=== PATIENT | male | born 1955 | race Caucasian/White ===

== ENCOUNTER 2019-03-26 12:15 | Emergency (ER) | payer MEDICAID, MEDICARE, OTHER, SELFPAY ==
[~2019-03-26] VITALS: Ht 172.7 cm; Wt 72.7 kg
[2019-03-26 12:52] LABS: BASO % 0.2 % (0.0-1.0); EOS % 0.2 % (0.0-3.0); HEMATOCRIT 42.2 % (42.0-52.0); HEMOGLOBIN 14.5 g/dl (13.5-17.5); LYMPH # 1.6 10^3/uL (1.5-4.5); LYMPH % 17.9 % (24.0-44.0); MEAN CORPUSCULAR HGB CONC 34.4 g/dl (32.0-36.5); MEAN CORPUSCULAR VOLUME 87.2 fl (80.0-96.0); MONO # 0.9 10^3/uL (0.0-0.8); MONO % 10.1 % (0.0-5.0); NEUTROPHILS # 6.2 10^3/uL (1.8-7.7); NEUTROPHILS % 71.1 % (36.0-66.0); PLATELET COUNT, AUTOMATED 367 10^3/uL (150-450); RED BLOOD COUNT 4.84 10^6/uL (4.30-6.10); WHITE BLOOD COUNT 8.7 10^3/uL (4.0-10.0)
[2019-03-26] MEDS ORDERED: NS 1,000 ML IV ONE (13:00)
[2019-03-26] MEDS ORDERED: ONDANSETRON 4MG/2ML VIAL (J2405) IV ONE ×3 (13:00→16:45)
[2019-03-26] MEDS ORDERED: MORPHINE 4 MG/ML 1ML VIAL/SYRINGE (J2270) IV ONE ×3 (13:00→14:00)
[2019-03-26] MEDS ORDERED: POLYSPORIN TOPICAL OINTMENT 15GM As Ordered ONE (13:04)
[2019-03-26 13:22] LABS: ALBUMIN 4.3 GM/DL (3.2-5.2); ALT/SGPT 22 U/L (12-78); AMYLASE 32 U/L (25-115); BILIRUBIN,DIRECT 0.2 MG/DL (0.0-0.2); BILIRUBIN,TOTAL 0.8 MG/DL (0.2-1.0); LIPASE 90 U/L (73-393); TOTAL PROTEIN 7.8 GM/DL (6.4-8.2)
--- NOTE | 2019-03-26 14:20 | REP ---
Clinical: Chest and abdominal pain . Comparison: None . Findings: The mediastinum and cardiac silhouette are stable and within normal limits for portable technique. The lung ramirez are clear without acute consolidation, effusion, or pneumothorax. Skeletal structures are intact. Impression: No acute cardiopulmonary process appreciated. Electronically Signed by Srikanth Rodriguez MD 03/26/2019 02:11 P
[2019-03-26] MEDS ORDERED: ISOVUE-370 76% 100ML VIAL (Q9967) As Ordered ONE (14:52)
[2019-03-26] MEDS ORDERED: LIDOCAINE 2% 5ML JELLY UROJET TOP ONE (15:15)
--- NOTE | 2019-03-26 15:39 | REP ---
Clinical: Left upper quadrant pain. Technique: Axial contrast enhanced images from the lung bases to the pubic symphysis with coronal and sagittal re-formations using 100 ml Isovue 370 intravenous contrast material. Findings: Lung bases are clear. Visualized heart and pericardium normal. Liver, spleen, pancreas, gallbladder, bilateral adrenal glands and kidneys are essentially normal. Subcentimeter left renal hypodensity likely represent small cortical cyst. Prominence to the pancreatic duct is nonspecific and no obvious obstructing lesion is appreciated. The enteric system is without obstruction or acute inflammatory process. Scattered colonic and sigmoid diverticula noted without acute diverticulitis. Pelvis demonstrates collapsed bladder and age appropriate prostate/seminal vesicles. Small fat containing left inguinal hernia noted. No ascites. No free air. No adenopathy. Atherosclerotic changes to the aorta and vasculature without aneurysm or dissection. Musculoskeletal structures demonstrate degenerative changes without focal osseous abnormality. Impression: 1. No obvious acute abdominopelvic pathology appreciated. 2. Chronic and nonacute findings as described above. Electronically Signed by Srikanth Rodriguez MD 03/26/2019 03:31 P
[2019-03-26 15:58] LABS: CPK CREATINE PHOSPHOKINASE 395 U/L (39-308); MB/CK RELATIVE INDEX 1.06 (< OR =4); TROPONIN I < 0.02 NG/ML (< 0.10)
[2019-03-26 16:22] VITALS: BP 182/90
[2019-03-26] MEDS ORDERED: BACI50OI TOP (16:22)
[2019-03-26] MEDS ORDERED: NORC1TAB7 PO (16:22)
[2019-03-26] MEDS ORDERED: ZOFR4TAB16 PO (16:42)
--- NOTE | 2019-03-26 19:47 | ECGEPIP ---
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
== END 2019-03-26 16:54 | disposition home or self-care (01) ==
LOC: M ED 12:15
DX: T21.24XA Burn of second degree of lower back, initial encounter (principal); T31.0 Burns involving less than 10% of body surface; X16.XXXA Contact with hot heating appliances, radiators and pipes, initial encounter; Y92.099 Unspecified place in other non-institutional residence as the place of occurrence of the external cause; Y93.84 Activity, sleeping; Y99.9 Unspecified external cause status; I45.4 Nonspecific intraventricular block; R10.9 Unspecified abdominal pain; I10 Essential (primary) hypertension; K51.919 Ulcerative colitis, unspecified with unspecified complications

== ENCOUNTER 2019-03-27 10:53 | Inpatient (IN) | payer MEDICARE, SELFPAY ==
[~2019-03-27] VITALS: Ht 172.7 cm; Wt 72.4 kg
[~2019-03-27 10:53] MED LIST: BACI50OI TOP; NORC1TAB7 PO; ZOFR4TAB16 PO
[2019-03-27] MEDS ORDERED: MORPHINE 4 MG/ML 1ML VIAL/SYRINGE (J2270) IV ONE ×2 (11:15→12:30)
[2019-03-27] MEDS ORDERED: ONDANSETRON 4MG/2ML VIAL (J2405) IV ONE ×2 (11:15→15:15)
[2019-03-27] MEDS ORDERED: NS 1,000 ML IV ONE (11:15)
[2019-03-27 11:47] LABS: BASO % 0.2 % (0.0-1.0); EOS % 0.1 % (0.0-3.0); HEMATOCRIT 39.4 % (42.0-52.0); HEMOGLOBIN 13.4 g/dl (13.5-17.5); LYMPH # 0.9 10^3/uL (1.5-4.5); LYMPH % 9.8 % (24.0-44.0); MEAN CORPUSCULAR HEMOGLOBIN 29.8 pg (27.0-33.0); MEAN CORPUSCULAR VOLUME 87.6 fl (80.0-96.0); MONO # 0.5 10^3/uL (0.0-0.8); MONO % 5.1 % (0.0-5.0); NEUTROPHILS % 84.4 % (36.0-66.0); PLATELET COUNT, AUTOMATED 346 10^3/uL (150-450); WHITE BLOOD COUNT 9.5 10^3/uL (4.0-10.0)
[2019-03-27] MEDS ORDERED: METOCLOPRAMIDE INJ 10MG/2ML VIAL (J2765) IV ONE (12:00)
[2019-03-27 12:16] LABS: ALBUMIN 3.9 GM/DL (3.2-5.2); ALT/SGPT 20 U/L (12-78); BILIRUBIN,DIRECT 0.2 MG/DL (0.0-0.2); BILIRUBIN,TOTAL 0.6 MG/DL (0.2-1.0); BLOOD UREA NITROGEN 18 MG/DL (7-18); CALCIUM LEVEL 9.3 MG/DL (8.8-10.2); CARBON DIOXIDE LEVEL 26 MEQ/L (21-32); CHLORIDE LEVEL 100 MEQ/L (98-107); GLOMERULAR FILTRATION RATE > 60.0 (>49); GLUCOSE, FASTING 100 MG/DL (70-100); LIPASE 210 U/L (73-393); POTASSIUM SERUM 3.8 MEQ/L (3.5-5.1); SODIUM LEVEL 135 MEQ/L (136-145); TOTAL PROTEIN 7.1 GM/DL (6.4-8.2)
[2019-03-27] MEDS ORDERED: NACL IV ONE (13:00)
[2019-03-27] MEDS ORDERED: KETAMINE IV ONE (13:00)
[2019-03-27] MEDS ORDERED: DILUENT IV ONE (13:00)
--- NOTE | 2019-03-27 13:12 | REP ---
Clinical: Left-sided abdominal pain. Technique: Upright view of the chest with supine and upright views of the abdomen and pelvis. Findings: Frontal upright view of the chest demonstrates no acute cardiopulmonary process or free air below the diaphragm to suspect pneumoperitoneum. Supine and upright views of the abdomen and pelvis demonstrate nonspecific bowel gas pattern without obstruction or perforation. No organomegaly. No abnormal calcifications. Skeletal structures normal for age. Impression: Nonspecific bowel gas pattern. Electronically Signed by Srikanth Rodriguez MD 03/27/2019 01:04 P
[2019-03-27] MEDS: GASTROGRAFIN SOLUTION 30ML PO SCH ×2 (14:48→14:50)
[2019-03-27] MEDS: METOPROLOL 5 MG/5 ML VIAL IV SCH ×5 (15:04→15:20)
[2019-03-27] MEDS ORDERED: NS 1,000 ML IV SCH ×2 (15:15→22:15)
[2019-03-27 15:22] LABS: INR 1.01; PROTHROMBIN TIME 13.4 SECONDS (12.1-14.4)
[2019-03-27 15:38] LABS: CPK CREATINE PHOSPHOKINASE 333 U/L (39-308); FREE THYROXINE INDEX 3.7 % (1.4-3.8); MB/CK RELATIVE INDEX 1.35 (< OR =4); T UPTAKE 38 % (33-40); THYROID STIMULATING HORMONE 0.451 uIU/ML (0.358-3.740); THYROXINE (T4) 9.8 UG/DL (4.5-12.0); TROPONIN I < 0.02 NG/ML (< 0.10)
[2019-03-27] MEDS ORDERED: diltiaZEM 125 MG in NS 100 ML IV SCH (15:45)
[2019-03-27 16:01] LABS: MAGNESIUM LEVEL 2.4 MG/DL (1.8-2.4)
[2019-03-27] MEDS ORDERED: NEOSPORIN TOP OINT 15GM TOP ONE (16:15)
--- NOTE | 2019-03-27 16:23 | REP ---
Clinical: Left lower quadrant pain with history of Crohn disease. Technique: Axial images from the lung bases to the pubic symphysis using oral contrast material with coronal and sagittal re-formations. Comparison: 03/26/2019. Findings: Liver, spleen, pancreas, bilateral adrenal glands and kidneys are normal. Vicarious excretion of contrast into the gallbladder may be related to underlying renal dysfunction. Evaluation of the enteric system demonstrates no obstruction. Mild inflammatory changes involving multiple loops of small bowel in the left mid abdomen cannot be excluded. Pelvis demonstrates normal bladder and age appropriate prostate/seminal vesicles. No ascites. No free air. No obvious adenopathy. Abdominal aorta without aneurysm. Small fat containing left inguinal hernia. Musculoskeletal structures demonstrate degenerative changes. Lung bases are clear. Impression: 1. Element of enteritis cannot definitively be excluded. No bowel obstruction. No free air to suggest perforation. No ascites, drainable collection or abscess appreciated. 2. Vicarious excretion of contrast into the gallbladder is noted and may be related to renal dysfunction. 3. No further acute abdominopelvic pathology appreciated. Electronically Signed by Srikanth Rodriguez MD 03/27/2019 04:15 P
[2019-03-27] MEDS ORDERED: AMIODARONE HCL 150 MG in APPROPRIATE DILUENT 1 EA IV STA (17:04)
[2019-03-27] MEDS ORDERED: LIDOCAINE 5% (LIDODERM) PATCH TD ONE (17:15)
[2019-03-27] MEDS ORDERED: ENOXAPARIN 40 MG/0.4 ML SYRINGE (J1650) SC SCH (17:15)
--- NOTE | 2019-03-27 17:41 | HPEPDOC ---
[facility] Medical History & Physical Date of Admission March 27, 2019 Date of Service: March 27, 2019 History and Physical PCP: [facility] [place] patient cannot recall name has not seen him in quite some time CHIEF COMPLAINT: Left-sided abdominal pain HISTORY OF PRESENT ILLNESS: Patient describes a long history of left lower quadrant abdominal pain that has been intermittent in nature for many years. He tells me over the last 2 days has become excruciating and unlike any time he has experienced previously, it is been associated with nausea but no vomiting and he has had very little to eat over the last 2 days because of the. He tells me he has a history of Crohn's disease and has had numerous colonoscopies related to his pain while. He cannot remember when the last one was done where it was done because that is had them done in [facility] as well as [place]. Patient tells me that he was in the emergency room yesterday he was told everything was fine and he went home however the pain was still excruciatin g prompting him to present once again today. He denies any relation to food or particular positions but rather with pinpoint pushing on the specific area. He tells me he also burned his back not last night but the night before while falling asleep laying in front ofheater. He has done this in the past as well but is particularly bad this time. While being evaluated in the emergency room today he began to feel a fluttering in his chest and was found to be in atrial fibrillation with rapid ventricular response which she has never experienced before or been in before to his knowledge. At this time the patient continues to complain of pain in his left lower quadrant as well as palpitations in his chest. He denies any significant pain related to his back. Otherwise patient denies weight loss, hair loss, headache, visual changes, cough, diarrhea, muscle aches, worsening arthritis, change in mood PAST MEDICAL HISTORY: 1. Crohn's disease not on any medication numerous colonoscopies in the past. 2. Anxiety depression schizophrenia not on any medications in the recent past. 3. Hiatal hernia 4. Asthma not any medications. HOME MEDICATIONS: None. ALLERGIES: Seasonal allergies no medical allergies PAST SURGICAL HISTORY: 1. Right knee surgery. 2. Hiatal hernia operation. 3. Numerous colonoscopies. SOCIAL HISTORY: Lives with: Alone normally in his camper but during the winter months and currently residing with his friend Db, Employment: Not working, Tobacco use: Denies. ETOH: Heavy user but quit 18 years ago, Illicit drug use: Daily marijuana use, Tattoos done unprofessionally: Numerous tattoos but certainly done, CODE STATUS: Full code FAMILY HISTORY:Reviewed and noncontributory REVIEW OF SYSTEMS: 10 systems reviewed and negative other than HPI PHYSICAL EXAMINATION: VITAL SIGNS: Temperature 98.5, pulse 135, respiratory rate 18, blood pressure 176/117, pulse oximetry 99 % on room air. GENERAL: Pleasant disheveled unkempt lady elderly man appears older than stated age sitting up in bed awake alert oriented speaking in complete sentences no acute distress HEENT: Somewhat dry mucous membranes no elevation and CVP CARDIOVASCULAR: S1 S2 irregular and tachycardic no additional heart sounds appreciated. RESPIRATORY: Clear to auscultation bilaterally. Diffuse foley and erythema to the back also in the midline approximately 7% appears to be second-degree foley to percent first-degree ABDOMINAL: Bowel sounds present abdomen soft and pinpoint tenderness to an area that appears to feel like a small 1 x 1 cm hernia versus lymph node in the left lower quadrant EXTREMITIES: No clubbing cyanosis or edema NEUROLOGICAL: Spontaneously moves all 4 extremities cranial 2 through 12 grossly intact no gross focal deficits appreciated PSYCHOLOGICAL: Appropriate LABORATORY DATA: See below. MICROBIOLOGY: Please see below. IMAGING: Abdominal x-ray:Nonspecific bowel gas pattern. CT scan of the abdomen and pelvis:1. Element of enteritis cannot definitively be excluded. No bowel obstruction. No free air to suggest perforation. No ascites, drainable collection or abscess appreciated. 2. Vicarious excretion of contrast into the gallbladder is noted and may be related to renal dysfunction. 3. No further acute abdominopelvic pathology appreciated. ASSESSMENT & PLAN: This is a 63-year-old man with left lower quadrant pain as well as foley and new onset atrial fibrillation with rapid ventricular response. PROBLEMS: 1. New onset atrial fibrillation with rapid ventricular response: The etiology is unclear and may be related to his foley there is no obvious provoking factors. He is started on a Cardizem drip in the emergency room given his symptomatic and is aware of the changes I suspect this is not a chronic ongoing arrhythmia for him. He was in normal sinus rhythm and documented as such in the emergency room upon arrival. I'll provide him with amiodarone 150 mg IV 1 and then continue Cardizem titrate for heart rate less than 120 and systolic blood pressure less than 180. I have contacted Dr. Pike of cardiology who will see the patient in consultation. I have ordered an echocardiogram thyroid panel is unremarkable he denies any illicit drug use other than marijuana. I will also transition troponins 2. First and second degree foley: On his back combined equate to approximately 9% of his body, the second degree foley appear fairly significant in the midline area. He denies any specific complaints with I have ordered him for silver Savanah vadene. Could consider inpatient wound consult. He appears to be adequately hydrated and his foley are already greater than 24 hours old at this time 3. Left lower quadrant abdominal pain: He appears to have either on lymph node versus small hernia in the left lower quadrant that is tender on palpation. It is not reducible does not appear to be acutely swollen and inflamed. I restarted general surgery Dr. Diallo will see the patient in consultation regarding this, his pain seems to be out of proportion he does have a normal lactate as well as no leukocytosis fever noted any blood in the stool. I'll provide him with a Lidoderm patch as discussed with surgery 4.Psychiatric history: Documented history of anxiety depression schizophrenia the patient denies all of these is not any medications at this time 5. Medical noncompliance: He has been noncompliant in the past has not seen doctors in quite some time he refused admission yesterday, strict adherence to all doctors instructions and follow up appointments was stressed. The patient tells me he does not believe in medications DVT PROPHYLAXIS: Lovenox DISPOSITION: Admitted to the medical intensive care unit his prognosis is guard ed Vital Signs Vital Signs Date Time Temp Pulse Resp B/P (MAP) Pulse Ox O2 Delivery O2 Flow Rate FiO2 03/27/19 17:10 131/85 (100) 03/27/19 17:01 116 18 97 Room Air 03/27/19 10:53 98.6 Laboratory Data Labs 24H Laboratory Tests 2 03/27/19 11:37: Immature Granulocyte % (Auto) 0.4, White Blood Count 9.5, Red Blood Count 4.50, Hemoglobin 13.4L, Hematocrit 39.4L, Mean Corpuscular Volume 87.6, Mean Corpuscular Hemoglobin 29.8, Mean Corpuscular Hemoglobin Concent 34.0, Red Cell Distribution Width 13.4, Platelet Count 346, Neutrophils (%) (Auto) 84.4H, Lymphocytes (%) (Auto) 9.8L, Monocytes (%) (Auto) 5.1H, Eosinophils (%) (Auto) 0.1, Basophils (%) (Auto) 0.2, Neutrophils # (Auto) 8.0H, Lymphocytes # (Auto) 0.9L, Monocytes # (Auto) 0.5, Eosinophils # (Auto) 0.0, Basophils # (Auto) 0.0, Nucleated Red Blood Cells % (auto) 0.0, Prothrombin Time 13.4, Prothromb Time International Ratio 1.01, Activated Partial Thromboplast Time 25.0L, Anion Gap 9, Glomerular Filtration Rate > 60.0, Lactic Acid Level 1.5, Calcium Level 9.3, Magnesium Level 2.4, Aspartate Amino Transf (AST/SGOT) 25, Alanine Aminotransferase (ALT/SGPT) 20, Alkaline Phosphatase 85, Total Bilirubin 0.6, Direct Bilirubin 0.2, Total Creatine Kinase 333H, Creatine Kinase MB 4.0H, Creatine Kinase MB Relative Index 1.35, Troponin I < 0.02, Total Protein 7.1, Albumin 3.9, Albumin/Globulin Ratio 1.22, Lipase 210, Thyroid Stimulating Hormone (TSH) 0.451, Free Thyroxine Index 3.7, Thyroxine (T4) 9.8, Triiodothy ronine (T3) Uptake 38 CBC/BMP Laboratory Tests 03/27/19 11:37 Red Blood Count 4.50, Mean Corpuscular Volume 87.6, Mean Corpuscular Hemoglobin 29.8, Mean Corpuscular Hemoglobin Concent 34.0, Red Cell Distribution Width 13.4, Neutrophils (%) (Auto) 84.4 H, Lymphocytes (%) (Auto) 9.8 L, Monocytes (%) (Auto) 5.1 H, Eosinophils (%) (Auto) 0.1, Basophils (%) (Auto) 0.2, Neutrophils # (Auto) 8.0 H, Lymphocytes # (Auto) 0.9 L, Monocytes # (Auto) 0.5, Eosinophils # (Auto) 0.0, Basophils # (Auto) 0.0 Home Medications Scheduled Bacitracin (Bacitracin) 28.4 Gm Oint...g., 1 APLCT TOP BID apply to affected area(s) Ondansetron HCl (Zofran) 4 Mg Tablet, 4 MG PO Q6H Allergies Coded Allergies: No Known Allergies (Unverified , 03/26/19) A-FIB/CHADSVASC A-FIB History Current/History of A-Fib/PAF?: Yes Current PO Anticoag Therapy: No Age/Risk Factor Scoring CHADSVASC: CHADSVASC Response (Comments) Value Age Risk Factor Age < 65 years old 0 Gender Risk Factor Male 0 Hx of CHF No 0 Hx of HTN Yes 1 Hx of Stroke/TIA/or VTE No 0 Hx of Diabetes No 0 Hx of Vascular Disease No 0 Total 1 Treatment Treatment ordered: NONE Reason Anticoagulant not given: Not indicated/[id number] ADAM ORR MD March 27, 2019 17:41
[2019-03-27] MEDS ORDERED: PERCOCET 5MG/325MG TAB PO PRN ×2 (17:45)
[2019-03-27] MEDS ORDERED: MORPHINE 4 MG/ML 1ML VIAL/SYRINGE (J2270) IV PRN (17:45)
[2019-03-27] MEDS: diltiaZEM 125 MG in NS 100 ML IV SCH (20:00)
--- NOTE | 2019-03-27 20:05 | CR ---
DATE OF CONSULTATION: 03/27/2019 REASON FOR CONSULTATION: Left lower quadrant point tenderness. HISTORY OF PRESENT ILLNESS: The patient is a 63-year-old male who has had some left lower quadrant pain for many years. However, over the last couple days it has been quite severe. He came into the emergency room yesterday and essentially had a negative workup, was discharged home and returns today because of persistent / increasing pain. When he was being evaluated, he did have some atrial fibrillation in a rapid ventricular response. He is here for additional recommendations. His second issue is that he developed a superficial burn of his back while sleeping in front of a space heater for some chronic back pain. He states that his pain is better when he has bowel movements and when he voids. He notices an area that seems to indent in his left lower quadrant and then it goes away. His past medical history is significant for history of anxiety, history of depression, history of schizophrenia, not on any medications, history of hiatal hernia, history of asthma, history of Crohn's disease (has had numerous colonoscopies with polypectomies), history of knee surgery, history of hiatal hernia surgery. Physical exam reveals a 63-year-old male who looks much older than stated age. HEENT is unremarkable. Neck supple without adenopathy. Lungs are clear to auscultation. Heart is irregularly irregular. His abdomen is soft, nondistended. He has a Lidoderm patch on his left lower quadrant. However, in palpation of this area I am not appreciating any significant hernias specifically in the inguinal area. The area that he has the Lidoderm patch on is actually in the left lower quadrant area and no evidence of hernias are appreciated on CT scan in this area. IMPRESSION AND PLAN: Left lower quadrant pain of undetermined etiology. I am not sure what the etiology is and may easily be musculoskeletal as a possibility. He does not appear obstructed on any of his x-rays. He does not have evidence of urinary tract obstruction on his x-rays and thus intra-abdominal process seems less likely at this time. Once again sounds more like musculoskeletal. Could be radiculopathy. Questionable node / swelling in the groin area. I am not appreciating any significant lymphadenopathy. He has some mild bulging in the / diastasis in the groin area but I am not convinced I have any evidence of hernia but this is not where he is tender. Thus at this point I do feel symptomatic treatment is reasonable alone for this. Second issue, his foley are getting current treatment for these and quick evaluation of reveal that some of these are deep first degree or possibly shallow second-degree foley but quite a significant amount on his back. Would recommend a wound consultation / consultation with Dr. Bustos tomorrow. Otherwise continue with his current dressing changes are reasonable at this time.
[2019-03-27 20:31] VITALS: BP 135/81
[2019-03-27] MEDS ORDERED: **NOTE PATIENT COMMENT** MISC XX SCH (21:00)
[2019-03-27] MEDS: SUCRALFATE 1 GM TAB PO SCH (21:00)
--- NOTE | 2019-03-27 21:04 | ECGEPIP ---
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
--- NOTE | 2019-03-27 21:11 | ECGEPIP ---
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 Order Number: [id number] Reading MD: Nicci Boykin Measurements Intervals [place] Rate: 143 P: IN: -1 QRS: 74 QRSD: 100 T: QT: 260 QTc: 402 Interpretive Statements ATRIAL FIBRILLATION WITH RAPID VENTRICULAR RESPONSE NONSPECIFIC ST & T-WAVE ABNORMALITY 03/27/19 11:14 SINUS RHYTHM Electronically Signed on 03-27-2019 21:11:20 EDT by Nicci Boykin
[2019-03-27] MEDS ORDERED: ONDANSETRON 4MG/2ML VIAL (J2405) IV PRN (21:30)
[2019-03-27 22:00] VITALS: BP 177/96
[2019-03-27] MEDS: PROCHLORPERAZINE 10 MG/2 ML VIAL (J0780) IV PRN (22:14)
[2019-03-27] MEDS: PANTOPRAZOLE 40MG INJ (PROTONIX) (C9113) IV SCH (22:14)
[2019-03-27] MEDS ORDERED: ENOXAPARIN 30 MG/0.3 ML SYR (J1650) SC ONE (22:15)
[2019-03-27 22:29] VITALS: BP 184/112
[2019-03-27] MEDS ORDERED: HYDROMORPHONE HCL 0.5 MG/ 0.5 ML SYRINGE (J1170 PER 1) IV ONE (22:30)
[2019-03-27] MEDS ORDERED: KETOROLAC 30 MG/ML VIAL (J1885) IV ONE (22:30)
[2019-03-27] MEDS: D5W/0.9% SODIUM CHLORIDE 1,000 ML IV SCH (22:45)
[2019-03-27 23:00] VITALS: BP 105/64
[2019-03-27] MEDS ORDERED: AMIODARONE HCL 150 MG in APPROPRIATE DILUENT 1 EA IV ONE (23:00)
[2019-03-27 23:10] VITALS: BP 112/58
[2019-03-27 23:37] VITALS: BP 110/69
[2019-03-28] VITALS (34 sets, daily range): BP systolic 84–235; BP diastolic 47–112
[2019-03-28] MEDS: SILVER SULFADIAZINE 1% CR 50 GM JAR TOP SCH ×5 (00:01→20:24)
[2019-03-28] MEDS: ONDANSETRON 4MG/2ML VIAL (J2405) IV SCH ×3 (04:37→21:15)
[2019-03-28 05:03] LABS: HEMATOCRIT 35.9 % (42.0-52.0); HEMOGLOBIN 12.4 g/dl (13.5-17.5); MEAN CORPUSCULAR HEMOGLOBIN 30.1 pg (27.0-33.0); MEAN CORPUSCULAR HGB CONC 34.5 g/dl (32.0-36.5); MEAN CORPUSCULAR VOLUME 87.1 fl (80.0-96.0); PLATELET COUNT, AUTOMATED 315 10^3/uL (150-450); RED BLOOD COUNT 4.12 10^6/uL (4.30-6.10); WHITE BLOOD COUNT 5.4 10^3/uL (4.0-10.0)
[2019-03-28 05:26] LABS: BLOOD UREA NITROGEN 13 MG/DL (7-18); CALCIUM LEVEL 7.9 MG/DL (8.8-10.2); CARBON DIOXIDE LEVEL 27 MEQ/L (21-32); CHLORIDE LEVEL 102 MEQ/L (98-107); CREATININE FOR GFR 0.93 MG/DL (0.70-1.30); GLOMERULAR FILTRATION RATE > 60.0 (>49); GLUCOSE, FASTING 93 MG/DL (70-100); POTASSIUM SERUM 3.8 MEQ/L (3.5-5.1); SODIUM LEVEL 139 MEQ/L (136-145)
[2019-03-28 05:28] LABS: MB/CK RELATIVE INDEX 1.64 (< OR =4); TROPONIN I 0.02 NG/ML (< 0.10)
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
[2019-03-28] MEDS: ASPIRIN 81 MG ENTERIC TAB PO SCH (09:13)
[2019-03-28] MEDS: PANTOPRAZOLE 40MG INJ (PROTONIX) (C9113) IV SCH ×2 (09:13→21:48)
[2019-03-28] MEDS: SUCRALFATE 1 GM TAB PO SCH ×3 (09:13→20:24)
[2019-03-28] MEDS: PROCHLORPERAZINE 10 MG/2 ML VIAL (J0780) IV PRN (12:09)
[2019-03-28] MEDS: D5W/0.9% SODIUM CHLORIDE 1,000 ML IV SCH (12:13)
[2019-03-28] MEDS: APIXABAN 5 MG TAB (ELIQUIS) PO SCH ×2 (12:45→20:24)
[2019-03-28] MEDS: METOPROLOL TART 25 MG TABLET PO SCH ×2 (12:45→17:18)
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
[2019-03-28] MEDS: VANCOMYCIN HCL 1,000 MG, VIAL MATE ADAPTER 1 EACH in D5W 250 ML IV ONE ×2 (13:08→15:27)
[2019-03-28] MEDS ORDERED: VANCOMYCIN HCL 500 MG in D5W MINI-BAG PLUS 100 ML IV ONE (14:00)
[2019-03-28] MEDS ORDERED: LIDOCAINE 1% MDV 20ML VIAL As Ordered ONE (14:02)
[2019-03-28] MEDS ORDERED: ISOVUE-370 76% 100ML VIAL (Q9967) As Ordered ONE (14:15)
[2019-03-28] MEDS: MORPHINE 4 MG/ML 1ML VIAL/SYRINGE (J2270) IV PRN (15:27)
[2019-03-28] MEDS ORDERED: LORazepam 2 MG/ML VIAL (J2060) IV ONE (15:45)
--- NOTE | 2019-03-28 15:51 | REP ---
Clinical: Abdominal pain. Rule out mesenteric ischemia. Technique: Axial contrast enhanced angiographic images obtained using 100 ml Isovue 370 intravenous contrast material with multiplanar re-formations and MIP reconstructions. Oral contrast administered prior to imaging as per protocol. Findings: The aorta, celiac axis, superior mesenteric artery, solitary bilateral renal arteries, and inferior mesenteric artery are normal in enhancement and without evidence for occlusion or stenosis. Very minimal calcified atheromatous plaquing along the infrarenal abdominal aorta and portions of the bilateral common iliac arteries noted without stenosis. No evidence for aortic aneurysm or dissection. Liver, spleen, pancreas, bilateral adrenal glands and kidneys are normal. Layering sludge within the gallbladder cannot be excluded without evidence for acute cholecystitis. The enteric system is without obstruction or acute inflammatory process. Pelvis demonstrates normal bladder and mildly prominent prostate gland. No ascites. Small fat containing left inguinal hernia noted. No free air. No adenopathy. Musculoskeletal structures demonstrate age-related degenerative changes without focal osseous abnormality. Impression: 1. Minimal calcified atheromatous plaque involving the infrarenal aorta and common iliac arteries. Normal enhancement to the aorta and major branch vessels noted without evidence for stenosis or occlusion. 2. No acute abdominopelvic pathology appreciated. 3. Layering sludge within the gallbladder without acute cholecystitis. 4. Mildly prominent prostate gland. 5. Small fat containing left inguinal hernia. Electronically Signed by Srikanth Rodriguez MD 03/28/2019 03:43 P
[2019-03-28] MEDS ORDERED: MOM 30ML SUSPENSION UDC PO ONE (16:15)
--- NOTE | 2019-03-28 16:21 | REP ---
Procedure: PICC line insertion with Corey-Lauren The procedure was performed under the direct supervision of Dr. Still. The risks and benefits of the procedure were explained to the patient and informed consent was obtained. The right basilic vein was localized using ultrasound guidance. The skin was prepped and draped in a sterile fashion. 2% lidocaine was used as a local anesthetic. Using ultrasound guidance the basilic vein was cannulated and a 0.018 guidewire was inserted and advanced to the SVC using fluoroscopic guidance. The needle was removed and a 5.5 [place] dilator and peel-away sheath was inserted over the guide wire. A 5.5 [place] dual lumen catheter was cut to length of 45 cm. The dilator was removed and the catheter was inserted over the guide wire with the tip ending in the SVC. The peel-away sheath was removed and the catheter was flushed with heparinized saline as per Hospital protocol. The catheter was affixed to the skin and a sterile dressing was applied. The patient tolerated the procedure well and there were no immediate complications. 0.2 minutes of fluoro time was utilized for this procedure. Reviewed by KENNETH Gutierrez 03/28/2019 04:01 P Electronically Signed by Sammy Still MD 03/28/2019 04:12 P
[2019-03-28] MEDS ORDERED: HYDROMORPHONE HCL 0.5 MG/ 0.5 ML SYRINGE (J1170 PER 1) IV ONE (16:30)
[2019-03-28] MEDS: MIRALAX *UNIT DOSE* 17GM PACKET PO SCH (16:39)
[2019-03-28] MEDS: diltiaZEM 125 MG in NS 100 ML IV SCH (17:25)
[2019-03-28] MEDS ORDERED: ENOXAPARIN 80 MG/0.8 ML SYRINGE (J1650) SC SCH (18:00)
[2019-03-28] MEDS ORDERED: SODIUM CHLORIDE 0.9% INJ 10 ML SYR IV PRN (18:15)
[2019-03-28] MEDS: DICYCLOMINE 10 MG CAP PO SCH (20:24)
[2019-03-28] MEDS: SENOKOT S TAB PO SCH (20:24)
--- NOTE | 2019-03-28 21:45 | ECHO ---
DATE OF PROCEDURE: 03/28/2019 REFERRING PHYSICIAN: Dennis Segura MD INDICATION: Abnormal ECG. HEIGHT: 173 cm WEIGHT: 72 kg 2D MEASUREMENTS: Ventricular septum: 1.13 cm Posterior wall: 1.00 cm Left ventricle diastole: 5.2 cm Left atrium: 4.0 cm Left atrial volume index: 24 Aortic annulus: 2.0 cm Inferior vena cava: 1.3 cm with more than 50% respiratory variation. Central venous pressure estimated to be 5 mmHg. DOPPLER MEASUREMENTS: Aortic valve velocity: 125 cm/s LVOT velocity: 112 cm/s LVOT VTI: 19.2 cm Mild mitral regurgitation. Very mild tricuspid regurgitation. No pulmonic regurgitation. No aortic regurgitation. DESCRIPTION: Rhythm was atrial fibrillation. Image quality was fair. This was a 2D, M-mode, color flow Doppler and pulse wave Doppler examination that included mitral annular tissue Doppler. No pericardial effusion. CONCLUSIONS: 1. Normal left ventricle internal dimensions and wall thickness. Normal regional LV wall motion and wall thickening. Normal LV systolic function. LVEF 65-70% by visual estimate. Unable to determine LV diastolic function in the setting of atrial fibrillation. 2. Normal left atrial size. 3. Otherwise normal appearing echocardiogram Doppler findings.
[2019-03-29] VITALS (30 sets, daily range): BP systolic 89–207; BP diastolic 48–106; O2SAT 98
[2019-03-29] MEDS: D5W/0.9% SODIUM CHLORIDE 1,000 ML IV SCH (01:52)
[2019-03-29] MEDS: PROCHLORPERAZINE 10 MG/2 ML VIAL (J0780) IV PRN ×2 (01:57→08:18)
[2019-03-29 05:00] LABS: HEMATOCRIT 32.9 % (42.0-52.0); HEMOGLOBIN 11.1 g/dl (13.5-17.5); MEAN CORPUSCULAR HEMOGLOBIN 29.8 pg (27.0-33.0); MEAN CORPUSCULAR HGB CONC 33.7 g/dl (32.0-36.5); MEAN CORPUSCULAR VOLUME 88.2 fl (80.0-96.0); PLATELET COUNT, AUTOMATED 292 10^3/uL (150-450); RED BLOOD COUNT 3.73 10^6/uL (4.30-6.10); WHITE BLOOD COUNT 4.9 10^3/uL (4.0-10.0)
[2019-03-29 05:18] LABS: BLOOD UREA NITROGEN 6 MG/DL (7-18); CALCIUM LEVEL 7.3 MG/DL (8.8-10.2); CARBON DIOXIDE LEVEL 28 MEQ/L (21-32); CHLORIDE LEVEL 109 MEQ/L (98-107); CREATININE FOR GFR 0.93 MG/DL (0.70-1.30); GLOMERULAR FILTRATION RATE > 60.0 (>49); GLUCOSE, FASTING 355 MG/DL (70-100); POTASSIUM SERUM 3.2 MEQ/L (3.5-5.1); SODIUM LEVEL 141 MEQ/L (136-145)
[2019-03-29] MEDS ORDERED: POTASSIUM CHLORIDE 10 MEQ SR TABLET PO ONE ×2 (05:30→07:45)
[2019-03-29] MEDS: ONDANSETRON 4MG/2ML VIAL (J2405) IV SCH ×3 (05:45→20:19)
[2019-03-29] MEDS: METOPROLOL TART 25 MG TABLET PO SCH ×2 (05:46)
[2019-03-29] MEDS: SODIUM CHLORIDE 0.9% INJ 10 ML SYR IV SCH ×2 (05:46→17:37)
[2019-03-29] MEDS ORDERED: DEXTROSE 50% 50 ML SYRINGE IV PRN (07:30)
[2019-03-29] MEDS ORDERED: GLUCOSE 4 GM CHEW TABLET PO PRN (07:30)
[2019-03-29] MEDS ORDERED: GLUCAGON FOR INJ 1 MG VIAL (J1610) SC PRN (07:30)
[2019-03-29] MEDS ORDERED: FLEET OIL RETENTION ENEMA PR PRN (08:15)
[2019-03-29] MEDS: MORPHINE 4 MG/ML 1ML VIAL/SYRINGE (J2270) IV PRN ×2 (08:18→20:25)
[2019-03-29] MEDS: HumaLOG INSULIN (NovoLOG) PER UNIT SC SCH ×2 (08:19→12:00)
--- NOTE | 2019-03-29 09:41 | ECGEPIP ---
[facility] Test Date: 2019-03-28 Pat Name: MOISES TRINIDAD Department: Room: [place] [address] Gender: Male Sectionizer: JORGE : 1955 Requested By: CHRISTIANA MERRILL Order Number: [id number] Reading MD: Philip Atwood Measurements Intervals [place] Rate: 71 P: 67 WA: 135 QRS: 68 QRSD: 108 T: 39 QT: 425 QTc: 463 Interpretive Statements SINUS RHYTHM MODERATE VOLTAGE CRITERIA FOR LVH, CONSIDER NORMAL VARIANT No longer in atrial fibrillation, decreased heart rate, and improved repolarization compared with 03/27/2019 at 1459 hrs. Electronically Signed on 03-29-2019 9:41:29 EDT by Philip Atwood
[2019-03-29] MEDS: MIRALAX *UNIT DOSE* 17GM PACKET PO SCH (09:45)
[2019-03-29] MEDS: SILVER SULFADIAZINE 1% CR 50 GM JAR TOP SCH (09:45)
[2019-03-29] MEDS: PANTOPRAZOLE 40MG INJ (PROTONIX) (C9113) IV SCH ×2 (09:45→21:02)
[2019-03-29] MEDS: DICYCLOMINE 10 MG CAP PO SCH ×3 (09:46→20:18)
[2019-03-29] MEDS: APIXABAN 5 MG TAB (ELIQUIS) PO SCH ×2 (09:46→20:19)
[2019-03-29] MEDS: SUCRALFATE 1 GM TAB PO SCH ×3 (09:46→20:19)
[2019-03-29] MEDS: SENOKOT S TAB PO SCH ×2 (09:46→21:00)
[2019-03-29] MEDS: ASPIRIN 81 MG ENTERIC TAB PO SCH (09:46)
[2019-03-29] MEDS ORDERED: MAGNESIUM CITRATE 300 ML BTL PO ONE (11:00)
[2019-03-29] MEDS ORDERED: HYDROMORPHONE HCL 0.5 MG/ 0.5 ML SYRINGE (J1170 PER 1) IV PRN (12:15)
--- NOTE | 2019-03-29 12:50 | CR.PDOC ---
General Date of Consultation: March 29, 2019 Consultation Vascular Surgery: Dr Grey HPI: 63year oldM admitted to [facility] related to Afib with RVR. Vascular surgery is consulted re Left sided abdominal pain, concern for mesenteric ischemia. Pt reports some nausea this AM, no vomiting. No BM since admission. Denies any fevers, chills, weakness, fatigue, Headache, Chest Pain, Shortness of breath, cough, palpitations, or changes in bladder habits. PAST MEDICAL HISTORY: 1. Crohn's disease not on any medication numerous colonoscopies in the past. 2. Anxiety depression schizophrenia not on any medications in the recent past. 3. Hiatal hernia 4. Asthma not any medications. PAST SURGICAL HISTORY: 1. Right knee surgery. 2. Hiatal hernia operation. 3. Numerous colonoscopies. SOCHX: Tobacco use: denies ETOH: states none in 18 mo Illicit Drugs: marijuana FAMHX: non contributory ROS: As noted in HPI, otherwise 11pt ROS of systems reviewed and unremarkable. PE: GEN: 63yoM, appears stated age. Alert and oriented x 3. HEENT: Normocephalic, atraumatic. Sclera are nonicteric. Conjunctiva without injection. Nose midline. Nasal turbinates without bogginess. Moist mucous membranes. Dentition poor. CHEST: Regular rate and rhythm, +S1, +S2 LUNGS: Clear to auscultation bilaterally. No wheezes, rales, or rhonchi. Breathing appears symmetric and easy. ABD: Round, soft, mild TTP LLQ, non-distended. +Bowel sounds throughout. No rebound or guarding. No costovertebral angle tenderness. EXT: No lower extremity edema appreciated. SKIN: [place], dry, warm. No rashes. NEURO: Alert and oriented x 3. Cranial nerves III-XII are intact. No focal deficits appreciated. CTA A/P Impression: 1. Minimal calcified atheromatous plaque involving the infrarenal aorta and common iliac arteries. Normal enhancement to the aorta and major branch vessels noted without evidence for stenosis or occlusion. 2. No acute abdominopelvic pathology appreciated. 3. Layering sludge within the gallbladder without acute cholecystitis. 4. Mildly prominent prostate gland. 5. Small fat containing left inguinal hernia. Electronically Signed by Srikanth Rodriguez MD 03/28/2019 03:43 P A&P:63year oldM admitted to [facility] related to Afib with RVR. Vascular surgery is consulted re Left sided abdominal pain, concern for mesenteric ischemia. 1. LLQ abdominal pain. Pt afebrile. No leukocytosis. VSS. CTA A/P with no acute abnormality noted. The pt is reviewed and examined as per Dr Grey. CTA A/P reviewed. There is no indication of mesenteric occlusion or stenosis noted. No further recommendations at this time. Vascular Surgery will re evaluate as needed. Thank you for your consultation. We will continue to follow along with you. Vital Signs/I&O Vital Signs Date Time Temp Pulse Resp B/P (MAP) Pulse Ox O2 Delivery O2 Flow Rate FiO2 03/29/19 12:32 22 03/29/19 07:44 98.2 65 134/70 (91) 98 03/29/19 03:45 0.5 03/27/19 20:08 Room Air I&O- Last 24 Hours up to 6 AM 03/29/19 06:00 Intake Total 2300 ml Output Total 1250 ml Balance 1050 ml Laboratory Data Labs 24H Laboratory Tests 2 03/29/19 04:46: Nucleated Red Blood Cells % (auto) 0.0, Anion Gap 4L, Glomerular Filtration Rate > 60.0, Blood Urea Nitrogen 6#L, Creatinine 0.93, Sodium Level 141, Potassium Level 3.2L, Chloride Level 109H, Carbon Dioxide Level 28, Calcium Level 7.3L, Magnesium Level 2.0 03/29/19 09:17: Bedside Glucose (Misc Panel) 55L 03/29/19 09:50: Bedside Glucose (Misc Panel) 74L 03/29/19 11:52: Bedside Glucose (Misc Panel) 88 CBC/BMP Laboratory Tests 03/29/19 04:46 Red Blood Count 3.73 L, Mean Corpuscular Volume 88.2, Mean Corpuscular Hemoglobin 29.8, Mean Corpuscular Hemoglobin Concent 33.7, Red Cell Distribution Width 13.3, Calcium Level 7.3 L Microbiology Microbiology 03/28/19 Blood Culture, Received Pending 03/28/19 Blood Culture - Preliminary, Resulted No growth after 24 hours . All specim... Allergies Coded Allergies: No Known Allergies (Unverified , 03/26/19) Home Medications Scheduled Bacitracin (Bacitracin) 28.4 Gm Oint...g., 1 APLCT TOP BID for 7 Days, #15 apply to affected area(s) Ondansetron HCl (Zofran) 4 Mg Tablet, 4 MG PO Q6H for 5 Days, #20 Catarina Pool March 29, 2019 12:50
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
[2019-03-29] MEDS ORDERED: GOLYTELY SOLN 4000 ML BTL PO ONE (14:00)
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
[2019-03-29] MEDS: EUCERIN 120GM CREAM TOP SCH (15:35)
[2019-03-29 16:53] LABS: HEMOGLOBIN A1c 5.4 %
[2019-03-29] MEDS: METOPROLOL TART 12.5 MG PER 1/2 TAB PO SCH (20:19)
[2019-03-29] MEDS ORDERED: HumaLOG INSULIN (NovoLOG) PER UNIT SC SCH (21:00)
--- NOTE | 2019-03-29 22:04 | CR ---
DATE OF CONSULTATION: 03/29/2019 This is a 63-year-old white male who was admitted to [facility] for evaluation of lower abdominal pain of unknown etiology. The patient presented with a longstanding known history of left lower quadrant abdominal pain over many years. The patient states approximately 48 hours prior to admission he had increasing abdominal pain with apparent nausea, but no vomiting. The patient had not been able to eat due to his pain. The patient apparently describes a history of Crohn disease. He has had numerous colonoscopies in the past for evaluation. According to the patient, he had a colonoscopy a year ago but it is unclear which hospital. The patient denies any melena, hematochezia or bright red blood per rectum. No fevers, night sweats or shaking chills. The patient was admitted for also atrial fibrillation with rapid ventricular response which is new onset. No melena, hematochezia or bright red blood per rectum. No diarrhea symptoms. PAST MEDICAL HISTORY 1. Positive for apparent Crohn disease. 2. Anxiety and depression. 3. Apparent diagnosis of schizophrenia, but the patient is untreated. 4. Hiatal hernia. 5. Asthma medications. MEDICATIONS AT HOME: None. ALLERGIES: No known declared allergies. PAST SURGICAL HISTORY 1. Right knee surgery. 2. Hiatal hernia operation. 3. Numerous colonoscopies. REVIEW OF SYSTEMS: Noncontributory. SOCIAL HISTORY: The patient lives alone. The patient is not working. Alcohol: none. The patient states that he was a heavy user of alcohol but quit 18 years ago. No recent IV drugs. The patient uses daily marijuana. PHYSICAL EXAMINATION Noncontributory. Patient was on his abdomen at the time of the patient's visitation in his room. LABORATORY: Laboratory studies on admission shows a white count 9500, hemoglobin and hematocrit of 13.4 and 39.4. On 03/29 the patient's white count was 4900 and hemoglobin and hematocrit was 11.1 and 32.9. Platelets of 292,000. The patient's coagulation showed INR 1.01. The patient's laboratory studies including a complete profile was basically normal. Liver functions were normal. Renal functions were essentially normal. The patient's creatinine was 1.2. Thyroid testing was normal. Albumin was 3.9. Imaging studies included a CT angio which was essentially normal liver and spleen, normal enhancement of the aorta and major vessels. No evidence of any stenosis or occlusion. No acute abdominal or pelvic pathology was noted. There was some sludge within the gallbladder without cholecystitis. The patient had a mildly prominent prostate gland. The patient had a CT of the abdomen and pelvis and showed question of an element of enteritis but could not be to excluded. No bowel obstruction or free air was seen. No perforation. Otherwise essentially normal abdominal CT. ANALYSIS: Left lower quadrant pain of unknown etiology. The patient apparently has had a colonoscopy a year ago and recently the CT scan was negative. IMPRESSION: 1. The patient has irritable bowel syndrome with a constipation component, which needs to the decompressed with MiraLax daily or if necessary twice a day to help control lack of bowel frequency. 2. If the patient's anxiety, depression and schizophrenia become decompensated then definitely should be seen by psych for further evaluation. The patient may need to be seen by psych either way since the proper medication will be required to control any psych disorders and thus alleviate his probable psychosomatic left sided abdominal pain, which is probably left sided irritable bowel syndrome which is typical for this presentation. CHLOE
[2019-03-30] MEDS: MORPHINE 4 MG/ML 1ML VIAL/SYRINGE (J2270) IV PRN (00:51)
[2019-03-30 04:00] VITALS: BP 133/69
[2019-03-30] MEDS: ONDANSETRON 4MG/2ML VIAL (J2405) IV SCH (05:33)
[2019-03-30] MEDS: SODIUM CHLORIDE 0.9% INJ 10 ML SYR IV SCH (05:33)
[2019-03-30 05:45] LABS: HEMATOCRIT 33.9 % (42.0-52.0); HEMOGLOBIN 11.3 g/dl (13.5-17.5); MEAN CORPUSCULAR HEMOGLOBIN 29.4 pg (27.0-33.0); MEAN CORPUSCULAR HGB CONC 33.3 g/dl (32.0-36.5); MEAN CORPUSCULAR VOLUME 88.3 fl (80.0-96.0); PLATELET COUNT, AUTOMATED 307 10^3/uL (150-450); RED BLOOD COUNT 3.84 10^6/uL (4.30-6.10)
[2019-03-30 06:17] LABS: BLOOD UREA NITROGEN 4 MG/DL (7-18); CARBON DIOXIDE LEVEL 30 MEQ/L (21-32); CHLORIDE LEVEL 102 MEQ/L (98-107); GLOMERULAR FILTRATION RATE > 60.0 (>49); GLUCOSE, FASTING 111 MG/DL (70-100); POTASSIUM SERUM 3.8 MEQ/L (3.5-5.1); SODIUM LEVEL 139 MEQ/L (136-145)
[2019-03-30 08:00] VITALS: BP 133/82
[2019-03-30] MEDS: DICYCLOMINE 10 MG CAP PO SCH (08:42)
[2019-03-30] MEDS: APIXABAN 5 MG TAB (ELIQUIS) PO SCH (08:43)
[2019-03-30] MEDS: ASPIRIN 81 MG ENTERIC TAB PO SCH (08:43)
[2019-03-30] MEDS: EUCERIN 120GM CREAM TOP SCH (08:44)
[2019-03-30] MEDS: MIRALAX *UNIT DOSE* 17GM PACKET PO SCH (08:45)
[2019-03-30] MEDS: SENOKOT S TAB PO SCH (08:46)
[2019-03-30 08:47] VITALS: BP 133/82
[2019-03-30] MEDS: METOPROLOL TART 12.5 MG PER 1/2 TAB PO SCH (08:47)
[2019-03-30] MEDS: SUCRALFATE 1 GM TAB PO SCH (08:52)
[2019-03-30] MEDS ORDERED: MIRALAX *UNIT DOSE* 17GM PACKET PO SCH (09:00)
[2019-03-30] MEDS: PANTOPRAZOLE 40MG INJ (PROTONIX) (C9113) IV SCH (10:00)
[2019-03-30] MEDS ORDERED: METO1TAB87 PO (11:34)
[2019-03-30] MEDS ORDERED: HYDR1CRE95 TOP (11:34)
[2019-03-30] MEDS ORDERED: PEG1POW PO (11:34)
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
== END 2019-03-30 12:22 | disposition home or self-care (01) | DRG 392 ==
LOC: M ED 10:53 → M ED INP 17:03 → M ICU 20:16 → M PCU 03-29 16:30
PROVIDERS: ADMIT Internal Medicine; ATTEND Internal Medicine
PROC: 02HV33Z Insertion of Infusion Device into Superior Vena Cava, Percutaneous Approach (ICD-10-PCS; principal; 2019-03-28)
DX: K58.1 Irritable bowel syndrome with constipation (principal); F41.9 Anxiety disorder, unspecified; F32.9 Major depressive disorder, single episode, unspecified; F20.9 Schizophrenia, unspecified; T31.0 Burns involving less than 10% of body surface; I48.0 Paroxysmal atrial fibrillation; K44.9 Diaphragmatic hernia without obstruction or gangrene; J45.909 Unspecified asthma, uncomplicated; Z87.891 Personal history of nicotine dependence; Z91.19 Patient's noncompliance with other medical treatment and regimen; T21.24XA Burn of second degree of lower back, initial encounter; T21.14XA Burn of first degree of lower back, initial encounter; X16.XXXA Contact with hot heating appliances, radiators and pipes, initial encounter; Y92.009 Unspecified place in unspecified non-institutional (private) residence as the place of occurrence of the external cause

== ENCOUNTER 2020-02-05 07:55 | Observation (INO) | payer MEDICAID, MEDICARE, SELFPAY ==
[~2020-02-05] VITALS: Ht 172.7 cm; Wt 76.7 kg
[~2020-02-05 07:55] MED LIST changes: +HYDR1CRE95 TOP; +METO1TAB87 PO; +PEG1POW PO
[2020-02-05] MEDS ORDERED: HALOPERIDOL 5 MG/ML VIAL (J1630) IV ONE ×2 (08:30→09:15)
[2020-02-05 09:12] LABS: BASO % 0.2 % (0.0-1.0); HEMATOCRIT 43.7 % (42.0-52.0); HEMOGLOBIN 14.7 g/dl (13.5-17.5); LYMPH % 16.8 % (24.0-44.0); MEAN CORPUSCULAR HEMOGLOBIN 29.4 pg (27.0-33.0); MEAN CORPUSCULAR HGB CONC 33.6 g/dl (32.0-36.5); MEAN CORPUSCULAR VOLUME 87.4 fl (80.0-96.0); MONO # 0.6 10^3/uL (0.0-0.8); MONO % 9.9 % (0.0-5.0); NEUTROPHILS # 4.5 10^3/uL (1.5-8.5); NEUTROPHILS % 72.8 % (36.0-66.0); PLATELET COUNT, AUTOMATED 228 10^3/uL (150-450); WHITE BLOOD COUNT 6.2 10^3/uL (4.0-10.0)
[2020-02-05 09:44] LABS: ALBUMIN 4.3 GM/DL (3.2-5.2); ALT/SGPT 42 U/L (12-78); BILIRUBIN,DIRECT 0.2 MG/DL (0.0-0.2); BILIRUBIN,TOTAL 0.7 MG/DL (0.2-1.0); BLOOD UREA NITROGEN 36 MG/DL (7-18); CALCIUM LEVEL 9.3 MG/DL (8.8-10.2); CARBON DIOXIDE LEVEL 25 MEQ/L (21-32); CHLORIDE LEVEL 96 MEQ/L (98-107); CK-MB VALUE MASS 5.6 NG/ML (<3.6); CPK CREATINE PHOSPHOKINASE 824 U/L (39-308); CREATININE FOR GFR 1.48 MG/DL (0.70-1.30); GLOMERULAR FILTRATION RATE 50.9 (>49); GLUCOSE, FASTING 110 MG/DL (70-100); LIPASE 52 U/L (73-393); MB/CK RELATIVE INDEX 0.68 (< OR =4); SODIUM LEVEL 130 MEQ/L (136-145); TOTAL PROTEIN 8.4 GM/DL (6.4-8.2); TROPONIN I < 0.02 NG/ML (< 0.10)
[2020-02-05] MEDS ORDERED: NS 1,000 ML IV ONE (10:00)
[2020-02-05] MEDS ORDERED: LORazepam 2 MG/ML VIAL (J2060) IV STA (10:01)
--- NOTE | 2020-02-05 11:47 | REP ---
KUB ABDOMEN AND PELVIS: KUB film of the abdomen and pelvis is performed. Bowel gas pattern is normal. No dilated small bowel loops are seen. There is no evidence of bowel obstruction. No abnormal calcifications are seen. There are mild degenerative changes of the spine. IMPRESSION: No evidence of bowel obstruction. Electronically Signed by Sammy Still MD 02/05/2020 03:11 P
[2020-02-05] MEDS ORDERED: **hydrALAZINE** 10 MG TAB PO SCH (12:00)
[2020-02-05] MEDS ORDERED: MAALOX 30 ML SUSP *UDC PO PRN (13:30)
[2020-02-05] MEDS ORDERED: ACETAMINOPHEN TAB 650MG DOSE (2X325MG) PO PRN (13:30)
[2020-02-05] MEDS ORDERED: **hydrALAZINE** 10 MG TAB PO PRN (13:30)
[2020-02-05] MEDS ORDERED: MOM 30ML SUSPENSION UDC PO PRN (13:30)
--- NOTE | 2020-02-05 14:03 | HPEPDOC ---
General Date of Admission Feb 05, 2020 at 07:56 Date of Service: Feb 05, 2020 Chief Complaint The patient is a 64-year-old male admitted with a reason for visit of Abdominal Pain. Source: Patient Exam Limitations: No limitations Timing/Duration: Other (this morning) Severity: Other (not applicable) Associated Symptoms: Other (. None) History of Present Illness This is a 64 years old white male with past medical history of Crohn's disease, on no medications, anxiety, depression and schizophrenia had a hernia, asthma, had developed left-sided abdominal pain since this morning and called the ambulance and then he had a large BM on his way here and symptoms completely resolved. Patient at the present time. Denies any nausea, vomiting, abdominal pain, etc. We will called in by ED physician, Dr. diaz to admit patient secondary to possible ATI as patient has not been eating and drinking since last day or 2, patient denies any complaints or symptoms at the present time Home Medications No Active Prescriptions or Reported Meds Allergies Coded Allergies: No Known Allergies (Unverified , 03/26/19) Past Medical History Medical History Crohn's disease, anxiety, depression, schizophrenia had a hernia, asthma Surgical History Right knee surgery, hiatal hernia operation numerous colonoscopies Social History * Smoker: Denies Alcohol: Denies Drugs: denies A-FIB/CHADSVASC A-FIB History Current/History of A-Fib/PAF?: No Review of Systems Constitutional: Denies: Chills, Fever, Malaise, Night Sweats, Weakness, Fatigue, Weight Loss, Lethargy, Other Eyes: Denies: Pain, Vision change, Conjunctivae inflammation, Eyelid inflammation, Redness, Other ENT: Denies: Head Aches, Ear Pain, Dysphagia, Sinus Congestion, Post Nasal Drip, Sore Throat, Epistaxis, Other Symptoms Skin: Denies: Rash, Lesions, Jaundice, Bruising, Itching, Dry, Breakdown, Nail Changes, Other Pulmonary: Denies: Dyspnea, Cough, Pleuritic Chest Pain, Other Symptoms Cardiovascular: Denies: Chest Pain, Palpitations, Orthopnea, Paroxysmal Noc. Dyspnea, Edema, Lt Headedness, Other Symptoms Gastrointestinal: Denies: Nausea, Vomiting, Abdominal Pain, Diarrhea, Constipation, Melena, Hematochezia, Other Symptoms Genitourinary: Denies: Dysuria, Frequency, Incontinence, Hematuria, Retention, Other Symptoms Hematologic: Denies: Bruising, Bleeding Excessively, Petecchia, Purpura, Enlarged Lymph Nodes, Other Hematologic Endocrine: Denies: Polydipsia, Polyphagia, Polyuria, Heat Intolerance, Cold Intolerance, Other Endocrine Sx Musculoskeletal: Denies: Neck Pain, Back Pain, Shoulder Pain, Arm Pain, Hand Pain, Leg Pain, Foot Pain, Joint Pain, Muscle Pain, Spasms, Other Symptoms Neurological: Denies: Weakness, Numbness, Incoordination, Change in speech, Confusion, Seizures, Other Symptoms Psych: Denies: Mood Normal, Anxiety, Depression, Memory Issues, Thoughts of Self Harm, Anger, Thoughts of Harming Other, Other Psych Physical Examination General Exam: Positive: Alert, Cooperative Eye Exam: Positive: PERRLA, Conjunctiva & lids normal ENT Exam: Positive: Atraumatic, Mucous membr. moist/pink Neck Exam: Positive: Supple Chest Exam: Positive: Clear to auscultation, Normal air movement Heart Exam: Positive: Rate Normal, Normal S1, Normal S2 Abdomen Exam: Positive: Normal bowel sounds, Soft Extremity Exam: Positive: Normal pulses Skin Exam: Positive: Nl turgor and temperature Neuro Exam: Positive: Normal Speech, Strength at 5/5 X4 ext, Cranial Nerves 3- 12 NL Psych Exam: Positive: Mood NL, Oriented x 3 Vital Signs Vital Signs Date Time Temp Pulse Resp B/P (MAP) Pulse Ox O2 Delivery O2 Flow Rate FiO2 02/05/20 11:01 73 16 215/92 (133) 98 Room Air 02/05/20 07:56 99.2 Laboratory Data Labs 24H Laboratory Tests 2 02/05/20 09:00: Immature Granulocyte % (Auto) 0.3, Neutrophils (%) (Auto) 72.8H, Lymphocytes (%) (Auto) 16.8L, Monocytes (%) (Auto) 9.9H, Eosinophils (%) (Auto) 0.0, Basophils (%) (Auto) 0.2, Neutrophils # (Auto) 4.5, Lymphocytes # (Auto) 1.0L, Monocytes # (Auto) 0.6, Eosinophils # (Auto) 0.0, Basophils # (Auto) 0.0, Nucleated Red Blood Cells % (auto) 0.0, Anion Gap 9, Glomerular Filtration Rate 50.9, Calcium Level 9.3, Total Bilirubin 0.7, Direct Bilirubin 0.2, Aspartate Amino Transf (AST/SGOT) 46H, Alanine Aminotransferase (ALT/SGPT) 42, Alkaline Phosphatase 90, Total Creatine Kinase 824H, Creatine Kinase MB 5.6H, Creatine Kinase MB Relative Index 0.68, Troponin I < 0.02, Total Protein 8.4H, Albumin 4.3, Albumin/Globulin Ratio 1.05, Lipase 52L CBC/BMP Laboratory Tests 02/05/20 09:00 Problems (1) Abdominal pain Status: Resolved Problem Text: According to patient, he had left lower quadrant pain (for which he had extensive workup done in the past and has been essentially negative) re solved after he had a large BM on his way to ED pt is completely asymptomatic at the present time, abdominal x-ray does not show any obstruction, CBC, CMP essentially normal. Lipase is 52. , No further GI workup necessary at this time Will continue home meds and follow patient clinically (2) Acute kidney failure Status: Acute Problem Text: Most likely secondary to dehydration and decreased oral intake IV fluids normal saline at 100 mL per hour BMP in a.m. (3) Dehydration Status: Acute Problem Text: As above (4) Hypertension Status: Acute Problem Text: No history of hypertension in the past Will start patient on hydralazine 10 mg by mouth every 6 hours and hold if systolic less than 110 Will monitor his blood pressure he might not require any medication on discharge, as I couldn't find any past medical history of hypertension, on all of his old records Plan / VTE VTE Prophylaxis Ordered?: Yes NEREYDA YUAN MD Feb 05, 2020 14:03
[2020-02-05] MEDS ORDERED: **hydrALAZINE** 10 MG TAB PO ONE (14:15)
[2020-02-05] MEDS: NS 1,000 ML IV SCH ×2 (14:28→23:07)
[2020-02-05 14:42] VITALS: BP 163/93
[2020-02-05] MEDS: ONDANSETRON 4MG/2ML VIAL (J2405) IV PRN ×2 (17:29→23:06)
[2020-02-05] MEDS: **hydrALAZINE** 10 MG TAB PO SCH ×2 (18:56→23:07)
[2020-02-05] MEDS: DOCUSATE SODIUM 100 MG CAP PO SCH (20:51)
[2020-02-05 22:00] VITALS: BP 111/57
[2020-02-06] MEDS: LORazepam 2 MG/ML VIAL (J2060) IV PRN ×2 (01:05→07:54)
[2020-02-06 05:41] VITALS: BP 158/92
[2020-02-06] MEDS: **hydrALAZINE** 10 MG TAB PO SCH (05:41)
[2020-02-06 06:00] VITALS: BP 158/92
[2020-02-06 06:18] LABS: HEMATOCRIT 39.8 % (42.0-52.0); HEMOGLOBIN 13.1 g/dl (13.5-17.5); MEAN CORPUSCULAR HEMOGLOBIN 29.1 pg (27.0-33.0); MEAN CORPUSCULAR HGB CONC 32.9 g/dl (32.0-36.5); MEAN CORPUSCULAR VOLUME 88.4 fl (80.0-96.0); PLATELET COUNT, AUTOMATED 202 10^3/uL (150-450); WHITE BLOOD COUNT 7.2 10^3/uL (4.0-10.0)
[2020-02-06 06:54] LABS: ALBUMIN 3.4 GM/DL (3.2-5.2); ALT/SGPT 31 U/L (12-78); BILIRUBIN,TOTAL 0.7 MG/DL (0.2-1.0); BLOOD UREA NITROGEN 19 MG/DL (7-18); CALCIUM LEVEL 7.8 MG/DL (8.8-10.2); CARBON DIOXIDE LEVEL 24 MEQ/L (21-32); CHLORIDE LEVEL 106 MEQ/L (98-107); CREATININE FOR GFR 0.89 MG/DL (0.70-1.30); GLOMERULAR FILTRATION RATE > 60.0 (>49); GLUCOSE, FASTING 96 MG/DL (70-100); MAGNESIUM LEVEL 2.3 MG/DL (1.8-2.4); POTASSIUM SERUM 3.6 MEQ/L (3.5-5.1); SODIUM LEVEL 138 MEQ/L (136-145); TOTAL PROTEIN 6.4 GM/DL (6.4-8.2)
[2020-02-06] MEDS ORDERED: LORazepam 2 MG/ML VIAL (J2060) As Ordered ONE (07:48)
[2020-02-06] MEDS: DOCUSATE SODIUM 100 MG CAP PO SCH (07:54)
[2020-02-06] MEDS ORDERED: ENOXAPARIN 40 MG/0.4 ML SYRINGE (J1650) SC SCH (09:00)
[2020-02-06] MEDS ORDERED: DOCU100C16 PO (10:29)
[2020-02-06] MEDS ORDERED: ONDA4TAB6 PO (10:30)
[2020-02-06] MEDS ORDERED: SILV1CRE60 TOP (10:39)
[2020-02-06] MEDS ORDERED: LORazepam 1 MG TAB PO STA (11:58)
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
[2020-02-07] MEDS ORDERED: ONDA4TAB6 PO (18:54)
[2020-02-07] MEDS ORDERED: MM S100C PO (18:54)
== END 2020-02-06 11:33 | disposition home or self-care (01) ==
LOC: M ED 07:55 → M MSPAV 07:56 → ENRESERV 13:29
PROVIDERS: ADMIT Internal Medicine; ATTEND Internal Medicine
DX: R10.9 Unspecified abdominal pain (principal); N17.9 Acute kidney failure, unspecified; E86.0 Dehydration; T21.24XA Burn of second degree of lower back, initial encounter; X11.0XXA Contact with hot water in bath or tub, initial encounter; Y92.091 Bathroom in other non-institutional residence as the place of occurrence of the external cause; T31.0 Burns involving less than 10% of body surface; R11.0 Nausea; I10 Essential (primary) hypertension; I48.91 Unspecified atrial fibrillation; F20.9 Schizophrenia, unspecified; F41.9 Anxiety disorder, unspecified; K50.90 Crohn's disease, unspecified, without complications; F32.9 Major depressive disorder, single episode, unspecified; J45.909 Unspecified asthma, uncomplicated
CPT/HCPCS: 36415; 74018; 80048; 80053; 80076; 82550; 82553; 83690; 83735; 84484; 85025; 85027; 93041; 96361; 96372; 96374; 96375; 96376; 99285; G0378; J1630; J1650; J2060; J2405

== ENCOUNTER 2020-02-07 12:47 | Emergency (ER) | payer MEDICAID, MEDICARE ==
[~2020-02-07] VITALS: Ht 172.7 cm; Wt 78.8 kg
[~2020-02-07 12:47] MED LIST changes: +DOCU100C16 PO; +ONDA4TAB6 PO; +SILV1CRE60 TOP
[2020-02-07] MEDS ORDERED: ONDANSETRON 4MG/2ML VIAL (J2405) IV ONE (13:45)
[2020-02-07] MEDS ORDERED: NS 1,000 ML IV ONE (13:45)
[2020-02-07] MEDS ORDERED: KETOROLAC 30 MG/ML VIAL (J1885) IV ONE (14:00)
[2020-02-07] MEDS ORDERED: hydrOXYzine 50 MG TAB PO STA (14:18)
[2020-02-07] MEDS ORDERED: LORazepam 2 MG/ML VIAL (J2060) IV STA (15:40)
[2020-02-07 15:54] LABS: BASO % 0.2 % (0.0-1.0); HEMATOCRIT 36.7 % (42.0-52.0); HEMOGLOBIN 12.6 g/dl (13.5-17.5); LYMPH # 0.7 10^3/uL (1.5-5.0); LYMPH % 11.8 % (24.0-44.0); MEAN CORPUSCULAR HGB CONC 34.3 g/dl (32.0-36.5); MEAN CORPUSCULAR VOLUME 87.4 fl (80.0-96.0); MONO # 0.5 10^3/uL (0.0-0.8); MONO % 8.8 % (0.0-5.0); NEUTROPHILS # 4.5 10^3/uL (1.5-8.5); PLATELET COUNT, AUTOMATED 219 10^3/uL (150-450); WHITE BLOOD COUNT 5.7 10^3/uL (4.0-10.0)
[2020-02-07 16:18] LABS: ALBUMIN 3.8 GM/DL (3.2-5.2); ALT/SGPT 31 U/L (12-78); BILIRUBIN,DIRECT 0.2 MG/DL (0.0-0.2); BILIRUBIN,TOTAL 0.6 MG/DL (0.2-1.0); BLOOD UREA NITROGEN 13 MG/DL (7-18); CALCIUM LEVEL 8.4 MG/DL (8.8-10.2); CARBON DIOXIDE LEVEL 28 MEQ/L (21-32); CHLORIDE LEVEL 105 MEQ/L (98-107); CREATININE FOR GFR 1.07 MG/DL (0.70-1.30); GLOMERULAR FILTRATION RATE > 60.0 (>49); GLUCOSE, FASTING 92 MG/DL (70-100); LIPASE 55 U/L (73-393); POTASSIUM SERUM 3.6 MEQ/L (3.5-5.1); SODIUM LEVEL 141 MEQ/L (136-145); TOTAL PROTEIN 6.9 GM/DL (6.4-8.2)
[2020-02-07 16:21] LABS: BILIRUBIN, URINE MANUAL NEGATIVE (NEGATIVE); GLUCOSE, URINE (UA) MANUAL NEGATIVE (NEGATIVE); KETONE, URINE MANUAL 2+ mg/dL (NEGATIVE); UROBILINOGEN, URINE MANUAL NORMAL (NORMAL)
[2020-02-07 16:31] LABS: BACTERIA, URINE NONE SEEN; MUCUS, URINE LARGE AMOUNT (NEGATIVE); SQUAMOUS EPITHELIAL CELL URINE SMALL AMOUNT /hpf (SMALL AMT)
[2020-02-07] MEDS ORDERED: ISOVUE-370 76% 100ML VIAL (Q9967) As Ordered ONE (17:33)
[2020-02-07 18:00] VITALS: BP 180/90
[2020-02-07] MEDS ORDERED: hydrALAZINE INJ 20 MG/ML VIAL IV ONE (18:00)
[2020-02-07] MEDS ORDERED: METOCLOPRAMIDE INJ 10MG/2ML VIAL (J2765) IV ONE (18:00)
[2020-02-07] MEDS ORDERED: ONDA4TAB6 PO (18:54)
[2020-02-07] MEDS ORDERED: MM S100C PO (18:54)
--- NOTE | 2020-02-07 19:57 | REPVR ---
PROCEDURE INFORMATION: Exam: CT Abdomen And Pelvis With Contrast Exam date and time: 02/07/2020 6:04 PM Age: 64 years old Clinical indication: Abdominal pain; Generalized; Additional info: Llq pain TECHNIQUE: Imaging protocol: Computed tomography of the abdomen and pelvis with intravenous contrast. Radiation optimization: All CT scans at this facility use at least one of these dose optimization techniques: automated exposure control; mA and/or kV adjustment per patient size (includes targeted exams where dose is matched to clinical indication); or iterative reconstruction. Contrast material: ISOVUE 370; Contrast volume: 100 ml; Contrast route: IV; COMPARISON: CT ABD/PEL W/IV CONTRAST ONLY 03/26/2019 3:10 PM FINDINGS: Liver: Normal. No mass. Gallbladder and bile ducts: Common bile duct is enlarged measuring 1.2 cm. Pancreas: Pancreatic ductal dilatation measuring 5 mm. Spleen: Normal. No splenomegaly. Adrenals: Normal. No mass. Kidneys and ureters: Normal. No hydronephrosis. Stomach and bowel: Unremarkable. No obstruction. No mucosal thickening. Appendix: No evidence of appendicitis. Intraperitoneal space: Unremarkable. No free air. No significant fluid collection. Vasculature: Unremarkable. No abdominal aortic aneurysm. Lymph nodes: Unremarkable. No enlarged lymph nodes. Bladder: Unremarkable as visualized. Reproductive: Unremarkable as visualized. Bones/joints: Unremarkable. No acute fracture. Soft tissues: Unremarkable. IMPRESSION: Common bile duct and pancreatic duct are dilated. Findings suspicious for pancreatic head lesion. MRI with and without contrast with pancreatic protocol and MRCP is recommended for evaluation. Electronically signed by: Ryan Baltazar On 02/07/2020 19:57:09 PM
[2020-02-07 20:21] VITALS: BP 109/59
--- NOTE | 2020-02-08 13:56 | ED PDOC ---
Post-Departure Follow-Up dr rincon and dr philip faxed formal report of ct abd/p for fu Chucho Luna MD Feb 08, 2020 13:56
== END 2020-02-07 20:46 | disposition home or self-care (01) ==
LOC: M ED 15:47
DX: I10 Essential (primary) hypertension (principal); R10.32 Left lower quadrant pain; R11.2 Nausea with vomiting, unspecified; K50.90 Crohn's disease, unspecified, without complications; K27.9 Peptic ulcer, site unspecified, unspecified as acute or chronic, without hemorrhage or perforation
CPT/HCPCS: 36415; 74177; 80048; 80076; 81000; 83605; 83690; 85025; 93041; 94760; 96361; 96374; 96375; 99285; J1885; J2060; J2405; J2765; Q9967

== ENCOUNTER 2020-02-09 13:54 | Emergency (ER) | payer MEDICARE ==
[~2020-02-09] VITALS: Ht 172.7 cm; Wt 79.0 kg
[~2020-02-09 13:54] MED LIST changes: +MM S100C PO
[2020-02-09] MEDS ORDERED: METOCLOPRAMIDE INJ 10MG/2ML VIAL (J2765) IV ONE (14:30)
[2020-02-09] MEDS ORDERED: NS 1,000 ML IV ONE (14:30)
[2020-02-09 14:56] LABS: BASO % 0.2 % (0.0-1.0); EOS % 0.7 % (0.0-3.0); HEMATOCRIT 37.6 % (42.0-52.0); HEMOGLOBIN 12.8 g/dl (13.5-17.5); LYMPH # 1.2 10^3/uL (1.5-5.0); LYMPH % 19.1 % (24.0-44.0); MEAN CORPUSCULAR HEMOGLOBIN 29.6 pg (27.0-33.0); MONO # 0.6 10^3/uL (0.0-0.8); MONO % 9.6 % (0.0-5.0); NEUTROPHILS # 4.3 10^3/uL (1.5-8.5); NEUTROPHILS % 70.2 % (36.0-66.0); PLATELET COUNT, AUTOMATED 274 10^3/uL (150-450); RED BLOOD COUNT 4.32 10^6/uL (4.30-6.10); WHITE BLOOD COUNT 6.1 10^3/uL (4.0-10.0)
[2020-02-09] MEDS ORDERED: CAPSAICIN 0.025% CR 60 GM TOP STA (15:09)
[2020-02-09] MEDS ORDERED: HALOPERIDOL 5 MG/ML VIAL (J1630) IV STA (15:23)
[2020-02-09 15:30] LABS: ALBUMIN 3.6 GM/DL (3.2-5.2); ALT/SGPT 28 U/L (12-78); BILIRUBIN,DIRECT 0.2 MG/DL (0.0-0.2); BILIRUBIN,TOTAL 0.4 MG/DL (0.2-1.0); BLOOD UREA NITROGEN 13 MG/DL (7-18); CALCIUM LEVEL 8.8 MG/DL (8.8-10.2); CARBON DIOXIDE LEVEL 29 MEQ/L (21-32); CHLORIDE LEVEL 103 MEQ/L (98-107); CK-MB VALUE MASS 1.4 NG/ML (<3.6); CPK CREATINE PHOSPHOKINASE 225 U/L (39-308); CREATININE FOR GFR 1.05 MG/DL (0.70-1.30); GLOMERULAR FILTRATION RATE > 60.0 (>49); GLUCOSE, FASTING 109 MG/DL (70-100); LIPASE 126 U/L (73-393); MB/CK RELATIVE INDEX 0.62 (< OR =4); POTASSIUM SERUM 3.4 MEQ/L (3.5-5.1); SODIUM LEVEL 138 MEQ/L (136-145); TOTAL PROTEIN 6.9 GM/DL (6.4-8.2); TROPONIN I < 0.02 NG/ML (< 0.10)
--- NOTE | 2020-02-09 15:31 | REP ---
Acute abdominal series: Three views. History: Abdomen pain. Findings: Upright chest radiograph is compared with the March 27, 2019 prior study. The lungs are well inflated and clear. Pleural angles are sharp. Heart is not enlarged. There is no evidence of infiltrate or free subdiaphragmatic air. Supine and erect views of the abdomen demonstrate air and stool in a nondistended colon. No small or large bowel dilation is seen. Flank stripes are intact. Psoas margins are symmetric. There is no evidence of bowel obstruction or significant air fluid level. No mass, organomegaly, or pathologic calcification seen. Impression: Negative acute abdominal series. Electronically Signed by Ben Diallo MD 02/09/2020 04:26 P
[2020-02-09] MEDS ORDERED: PROMETHAZINE INJ 25 MG/ML VIAL (J2550) IV ONE (16:30)
[2020-02-09 17:15] VITALS: BP 129/58
[2020-02-09] MEDS ORDERED: PROM1SUP2 PR (17:25)
[2020-02-09] MEDS ORDERED: REGL10TA6 PO (17:25)
[2020-02-09] MEDS ORDERED: MIRA3350 PO (17:25)
[2020-02-09] MEDS ORDERED: CAPS0.022 TOP (17:25)
--- NOTE | 2020-02-11 11:32 | ECGEPIP ---
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
== END 2020-02-09 17:47 | disposition home or self-care (01) ==
LOC: M ED 13:54
DX: F12.288 Cannabis dependence with other cannabis-induced disorder (principal); K27.9 Peptic ulcer, site unspecified, unspecified as acute or chronic, without hemorrhage or perforation; F20.9 Schizophrenia, unspecified

== ENCOUNTER → 2020-02-13 | Outpatient (CLI) | payer MEDICARE ==
[~2020-02-13] MED LIST changes: +CAPS0.022 TOP; +MIRA3350 PO; +PROHANCE 279.3MG/ML 15ML VIAL (A9576) As Ordered ONE; +PROM1SUP2 PR; +REGL10TA6 PO
--- NOTE | 2020-02-14 10:13 | REP ---
MRI ABDOMEN WITH AND WITHOUT CONTRAST: COMPARISON: CT 02/07/2020 and 03/28/2019 Multiple sequences obtained in the axial and coronal planes prior to and following the intravenous administration of 50 mL ProHance. There is no pancreatic mass. Pancreatic duct is not significantly dilated. Common bile duct is ectatic proximally measuring approximately 9 x 13 mm. This appears to be chronic and have a similar appearance of a CT of 03/28/2019. More distally, the common bile duct gradually tapers to the ampulla of Vater. There is no evidence of choledocholithiasis or cholelithiasis. No biliary stricture is seen. Visualized liver, spleen, adrenals and right kidney are unremarkable. There is a small cyst of the lower pole of the left kidney. There is no hydronephrosis. I seen no adenopathy or free fluid in the visualized abdomen. IMPRESSION: Somewhat ectatic proximal common bile duct measuring 9 x 13 mm. More distally, the common bile duct tapers in a normal fashion with no internal stone or stricture. There is no pancreatic mass. The ectatic common bile duct appears similar to the prior CT of 03/28/2019. No evidence of cholelithiasis. Electronically Signed by Sammy Still MD 02/14/2020 12:03 P
--- NOTE | 2020-02-14 11:15 | MEDONCTEEN ---
Date/Time of Encounter Date of Encounter: Feb 14, 2020 Time of Encounter: 11:30 Telephone Encounter Reviewed MRI of the abdomen. No pancreatic mass noted Referred to gastroenterology by the emergency room 's office called today and did not think the patient needs to be seen in their office Recommend referral to Dr. Genaro Vizcaino in [place] for biopsy Weight MRCP results Referral to Dr. Vizcaino as recommended above EARL GERMAN MD Feb 14, 2020 11:15
== END ==
LOC: M RAD 15:50
PROVIDERS: ATTEND Internal Medicine Hematology & Oncology
DX: K83.9 Disease of biliary tract, unspecified (principal)
CPT/HCPCS: 74181; 74183; A9576

== ENCOUNTER 2020-03-19 07:59 | Inpatient (IN) | payer MEDICAID, MEDICARE ==
[~2020-03-19] VITALS: Ht 172.7 cm; Wt 72.1 kg
[~2020-03-19 07:59] MED LIST changes: -PROHANCE 279.3MG/ML 15ML VIAL (A9576) As Ordered ONE
[2020-03-19] MEDS ORDERED: NS 2,160 ML in IV 1 EA IV ONE (08:30)
[2020-03-19] MEDS ORDERED: ONDANSETRON 4MG/2ML VIAL As Ordered ONE (08:51)
[2020-03-19] MEDS ORDERED: ONDANSETRON 4MG/2ML VIAL IV ONE (09:00)
[2020-03-19] MEDS ORDERED: LIDOCAINE 5% (LIDODERM) PATCH TD SCH (09:00)
[2020-03-19 09:15] LABS: BASO % 0.1 % (0.0-1.0); HEMATOCRIT 46.5 % (42.0-52.0); HEMOGLOBIN 15.9 g/dl (13.5-17.5); LYMPH # 0.8 10^3/uL (1.5-5.0); LYMPH % 5.3 % (24.0-44.0); MEAN CORPUSCULAR HEMOGLOBIN 29.7 pg (27.0-33.0); MEAN CORPUSCULAR HGB CONC 34.2 g/dl (32.0-36.5); MEAN CORPUSCULAR VOLUME 86.8 fl (80.0-96.0); MONO % 6.4 % (0.0-5.0); NEUTROPHILS # 13.1 10^3/uL (1.5-8.5); NEUTROPHILS % 87.5 % (36.0-66.0); PLATELET COUNT, AUTOMATED 344 10^3/uL (150-450); RED BLOOD COUNT 5.36 10^6/uL (4.30-6.10)
[2020-03-19 09:28] LABS: INR 1.07; PROTHROMBIN TIME 13.6 SECONDS (11.8-14.0)
[2020-03-19 09:29] LABS: PARTIAL THROMBOPLASTIN TIME 26.3 SECONDS (25.0-38.4)
[2020-03-19] MEDS ORDERED: KETOROLAC 30 MG/ML 1ML VIAL IV ONE (09:30)
[2020-03-19] MEDS ORDERED: SILVER SULFADIAZINE 1% CR 50 GM JAR TOP ONE (09:30)
--- NOTE | 2020-03-19 09:43 | REP ---
PORTABLE CHEST X-RAY: Single view. HISTORY: Sepsis. Shock. COMPARISON CHEST X-RAY: February 09, 2020. FINDINGS: The lungs are well inflated and clear. The pleural angles are sharp. Cardiomediastinal silhouette is unremarkable and unchanged. Monitoring electrodes overlie the chest. No bony abnormality is seen. IMPRESSION: No active disease. Electronically Signed by Ben Diallo MD 03/19/2020 12:32 P
[2020-03-19] MEDS ORDERED: hydrALAZINE 20MG/ML 1ML VIAL (J0360 PER 20MG) IV ONE (09:45)
[2020-03-19 09:54] LABS: ALT/SGPT 28 U/L (12-78); BILIRUBIN,DIRECT 0.2 MG/DL (0.0-0.2); BILIRUBIN,TOTAL 0.7 MG/DL (0.2-1.0); BLOOD UREA NITROGEN 96 MG/DL (7-18); CALCIUM LEVEL 9.8 MG/DL (8.8-10.2); CARBON DIOXIDE LEVEL 18 MEQ/L (21-32); CHLORIDE LEVEL 99 MEQ/L (98-107); CK-MB VALUE MASS 3.7 NG/ML (<3.6); CPK CREATINE PHOSPHOKINASE 218 U/L (39-308); CREATININE FOR GFR 7.96 MG/DL (0.70-1.30); GLOMERULAR FILTRATION RATE 7.3 (>49); GLUCOSE, FASTING 139 MG/DL (70-100); LIPASE 111 U/L (73-393); POTASSIUM SERUM 4.4 MEQ/L (3.5-5.1); SODIUM LEVEL 135 MEQ/L (136-145); TOTAL PROTEIN 8.8 GM/DL (6.4-8.2); TROPONIN I < 0.02 NG/ML (< 0.10)
[2020-03-19] MEDS ORDERED: METOCLOPRAMIDE INJ 10MG/2ML VIAL (J2765 PER 1) IV ONE (10:00)
[2020-03-19 10:04] VITALS: BP 189/92
[2020-03-19] MEDS ORDERED: HALOPERIDOL 5MG/ML VIAL (J1630 PER 1) IV ONE (10:15)
[2020-03-19] MEDS ORDERED: CAPSAICIN 0.025% CR 60 GM TOP ONE (10:15)
--- NOTE | 2020-03-19 11:59 | ECGEPIP ---
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
--- NOTE | 2020-03-19 12:05 | REP ---
CT ABDOMEN AND PELVIS WITHOUT CONTRAST: CT abdomen and pelvis performed without oral and IV contrast. Sagittal and coronal reconstruction images are performed. COMPARISON: 02/07/2020 Visualized lung bases demonstrate no infiltrate. The liver, spleen, adrenals, pancreas and kidneys are grossly unremarkable. There is no renal, ureteral or bladder calculus. There is no hydroureteronephrosis. There is atherosclerotic calcification of the abdominal aorta without aneurysm. No adenopathy is seen. There is no free air or free fluid. There is no bowel wall thickening. The appendix is normal. No pelvic mass is seen. There is a small left inguinal hernia containing fat. There are degenerative changes of the spine. IMPRESSION: No acute abnormality is detected as discussed above. Electronically Signed by Sammy Still MD 03/19/2020 12:19 P
[2020-03-19] MEDS ORDERED: NS 1,000 ML IV SCH (12:30)
[2020-03-19 14:00] VITALS: BP 164/76
[2020-03-19 14:30] LABS: OSMOLALITY URINE 519 MOSM/KG (500-800)
[2020-03-19 14:51] LABS: SODIUM,RANDOM URINE < 10 MEQ/L
[2020-03-19 15:14] LABS: ALBUMIN 3.8 GM/DL (3.2-5.2); CALCIUM LEVEL 8.2 MG/DL (8.8-10.2); CREATININE FOR GFR 6.57 MG/DL (0.70-1.30); GLOMERULAR FILTRATION RATE 9.1 (>49); PHOSPHORUS LEVEL 6.6 MG/DL (2.5-4.9); POTASSIUM SERUM 4.4 MEQ/L (3.5-5.1)
[2020-03-19] MEDS: SODIUM BICARBONATE 75 MEQ in NS 0.45% 1,000 ML IV SCH (15:18)
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
[2020-03-19] MEDS: METOCLOPRAMIDE INJ 10MG/2ML VIAL (J2765 PER 1) IV PRN (17:59)
[2020-03-19] MEDS: SILVER SULFADIAZINE 1% CR 50 GM JAR TOP PRN ×2 (17:59→23:00)
[2020-03-19] MEDS ORDERED: MIRALAX *UNIT DOSE* 17GM PACKET PO PRN (18:30)
[2020-03-19] MEDS ORDERED: LACTULOSE 20 GM/30 ML SYRUP UD PR ONE (20:00)
[2020-03-19 22:00] VITALS: BP 141/70
[2020-03-19] MEDS: HEPARIN SOD (PORCINE) 5000UNITS/ML VIAL (J1644 PER 1000UNITS) SQ SCH (22:58)
[2020-03-19] MEDS: SENOKOT S TAB PO SCH (22:58)
[2020-03-19] MEDS: ONDANSETRON 4MG/2ML VIAL IV PRN (22:59)
[2020-03-19] MEDS: LIDOCAINE 5% (LIDODERM) PATCH TD SCH (23:00)
[2020-03-20] MEDS: MORPHINE 2 MG/ML 1ML VIAL (J2270) IV PRN ×5 (00:48→23:55)
[2020-03-20] MEDS: SODIUM BICARBONATE 75 MEQ in NS 0.45% 1,000 ML IV SCH (01:04)
[2020-03-20] MEDS: METOCLOPRAMIDE INJ 10MG/2ML VIAL (J2765 PER 1) IV PRN ×3 (03:10→20:22)
[2020-03-20] MEDS: ACETAMINOPHEN TAB 650MG DOSE (2X325MG) PO PRN ×2 (03:10→18:32)
[2020-03-20] MEDS: SILVER SULFADIAZINE 1% CR 50 GM JAR TOP PRN ×2 (03:56→09:13)
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
[2020-03-20] MEDS: ONDANSETRON 4MG/2ML VIAL IV PRN ×2 (05:40→15:28)
[2020-03-20 06:00] VITALS: BP 136/74
[2020-03-20 06:21] LABS: BASO % 0.1 % (0.0-1.0); HEMATOCRIT 35.2 % (42.0-52.0); LYMPH % 11.1 % (24.0-44.0); MEAN CORPUSCULAR HEMOGLOBIN 29.5 pg (27.0-33.0); MEAN CORPUSCULAR HGB CONC 34.1 g/dl (32.0-36.5); MEAN CORPUSCULAR VOLUME 86.5 fl (80.0-96.0); MONO # 1.2 10^3/uL (0.0-0.8); MONO % 12.4 % (0.0-5.0); NEUTROPHILS % 75.8 % (36.0-66.0); PLATELET COUNT, AUTOMATED 254 10^3/uL (150-450); RED BLOOD COUNT 4.07 10^6/uL (4.30-6.10); WHITE BLOOD COUNT 9.3 10^3/uL (4.0-10.0)
[2020-03-20 06:42] LABS: CALCIUM LEVEL 8.5 MG/DL (8.8-10.2); CREATININE FOR GFR 3.55 MG/DL (0.70-1.30); GLOMERULAR FILTRATION RATE 18.6 (>49); POTASSIUM SERUM 3.6 MEQ/L (3.5-5.1)
[2020-03-20 08:25] LABS: MAGNESIUM LEVEL 2.8 MG/DL (1.8-2.4); PHOSPHORUS LEVEL 5.3 MG/DL (2.5-4.9)
[2020-03-20] MEDS: HEPARIN SOD (PORCINE) 5000UNITS/ML VIAL (J1644 PER 1000UNITS) SQ SCH ×2 (09:12→20:21)
[2020-03-20] MEDS: SENOKOT S TAB PO SCH ×2 (09:12→20:22)
[2020-03-20] MEDS: KCL 20MEQ in NS 1000ML 1,000 ML IV SCH ×2 (09:12→20:29)
[2020-03-20] MEDS: **NOTE PATIENT COMMENT** MISC XX SCH (09:12)
[2020-03-20] MEDS: MIRALAX *UNIT DOSE* 17GM PACKET PO SCH ×2 (09:12→20:22)
[2020-03-20] MEDS ORDERED: SILVER SULFADIAZINE 1% CR 400 GM JAR TOP PRN (09:30)
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
[2020-03-20 14:00] VITALS: BP 141/85
[2020-03-20] MEDS ORDERED: SANTYL OINT 30GM TOP PRN (15:00)
[2020-03-20] MEDS: SANTYL OINT 30GM TOP SCH (15:29)
[2020-03-20] MEDS: LIDOCAINE 5% (LIDODERM) PATCH TD SCH (20:21)
[2020-03-20 22:00] VITALS: BP 138/70
[2020-03-21] MEDS: ONDANSETRON 4MG/2ML VIAL IV PRN (01:38)
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
[2020-03-21 06:00] VITALS: BP 134/80
[2020-03-21] MEDS: METOCLOPRAMIDE INJ 10MG/2ML VIAL (J2765 PER 1) IV PRN (06:12)
[2020-03-21 06:33] LABS: BASO % 0.2 % (0.0-1.0); EOS % 0.3 % (0.0-3.0); HEMATOCRIT 34.7 % (42.0-52.0); HEMOGLOBIN 11.5 g/dl (13.5-17.5); LYMPH # 1.3 10^3/uL (1.5-5.0); LYMPH % 20.7 % (24.0-44.0); MEAN CORPUSCULAR HEMOGLOBIN 29.6 pg (27.0-33.0); MEAN CORPUSCULAR HGB CONC 33.1 g/dl (32.0-36.5); MEAN CORPUSCULAR VOLUME 89.2 fl (80.0-96.0); MONO # 0.7 10^3/uL (0.0-0.8); MONO % 11.5 % (0.0-5.0); NEUTROPHILS # 4.3 10^3/uL (1.5-8.5); RED BLOOD COUNT 3.89 10^6/uL (4.30-6.10); WHITE BLOOD COUNT 6.4 10^3/uL (4.0-10.0)
[2020-03-21 06:47] LABS: CREATININE FOR GFR 1.42 MG/DL (0.70-1.30); GLOMERULAR FILTRATION RATE 53.4 (>49); MAGNESIUM LEVEL 2.3 MG/DL (1.8-2.4); PHOSPHORUS LEVEL 2.2 MG/DL (2.5-4.9); POTASSIUM SERUM 3.9 MEQ/L (3.5-5.1)
[2020-03-21] MEDS: MORPHINE 2 MG/ML 1ML VIAL (J2270) IV PRN (07:06)
[2020-03-21] MEDS: MIRALAX *UNIT DOSE* 17GM PACKET PO SCH (08:21)
[2020-03-21] MEDS: SANTYL OINT 30GM TOP SCH (08:21)
[2020-03-21] MEDS: SENOKOT S TAB PO SCH (08:21)
[2020-03-21] MEDS: HEPARIN SOD (PORCINE) 5000UNITS/ML VIAL (J1644 PER 1000UNITS) SQ SCH (08:21)
[2020-03-21] MEDS: **NOTE PATIENT COMMENT** MISC XX SCH (08:22)
[2020-03-21] MEDS ORDERED: BISACODYL 10 MG SUPP PR PRN (10:15)
[2020-03-21] MEDS ORDERED: PEG1POW PO (10:19)
[2020-03-21] MEDS ORDERED: SANT250O8 TOP ×2 (10:19)
[2020-03-21] MEDS ORDERED: BISA10SU PR (10:19)
[2020-03-21] MEDS ORDERED: SENN-52 PO (10:19)
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
== END 2020-03-21 12:25 | disposition home or self-care (01) | DRG 683 ==
LOC: M ED 07:59 → M ED INP 12:17 → ENRESERV 12:53 → M MSPAV 13:59
PROVIDERS: ADMIT Internal Medicine Nephrology; ATTEND Internal Medicine Nephrology
DX: N17.9 Acute kidney failure, unspecified (principal); E87.2 Acidosis; K58.1 Irritable bowel syndrome with constipation; F41.9 Anxiety disorder, unspecified; F32.9 Major depressive disorder, single episode, unspecified; F20.9 Schizophrenia, unspecified; K44.9 Diaphragmatic hernia without obstruction or gangrene; F12.90 Cannabis use, unspecified, uncomplicated; E86.0 Dehydration; T21.14XA Burn of first degree of lower back, initial encounter; T21.24XA Burn of second degree of lower back, initial encounter; X16.XXXA Contact with hot heating appliances, radiators and pipes, initial encounter; Y92.009 Unspecified place in unspecified non-institutional (private) residence as the place of occurrence of the external cause

== ENCOUNTER 2020-03-25 23:02 | Emergency (ER) | payer MEDICARE ==
[~2020-03-25] VITALS: Ht 172.7 cm; Wt 76.7 kg
[~2020-03-25 23:02] MED LIST changes: +BISA10SU PR; +SANT250O8 TOP; +SENN-52 PO
[2020-03-25] MEDS ORDERED: KETOROLAC 30 MG/ML 1ML VIAL IV ONE (23:30)
[2020-03-25] MEDS ORDERED: ONDANSETRON 4MG/2ML VIAL IV ONE (23:30)
[2020-03-25] MEDS ORDERED: NS 1,000 ML IV SCH (23:30)
--- NOTE | 2020-03-25 23:46 | REPVR ---
PROCEDURE INFORMATION: Exam: CT Abdomen And Pelvis Without Contrast Exam date and time: 03/25/2020 11:16 PM Age: 64 years old Clinical indication: Abdominal pain; Flank; Left; Additional info: Renal colic TECHNIQUE: Imaging protocol: Computed tomography of the abdomen and pelvis without contrast. Radiation optimization: All CT scans at this facility use at least one of these dose optimization techniques: automated exposure control; mA and/or kV adjustment per patient size (includes targeted exams where dose is matched to clinical indication); or iterative reconstruction. COMPARISON: CT ABD PELVIS W/O CONTRAST 03/19/2020 10:58 AM FINDINGS: Liver: Normal. No mass. Gallbladder and bile ducts: Gallbladder is unremarkable. CBD measures 9 mm in diameter. Pancreas: Normal. No ductal dilation. Spleen: Calcified granuloma in the spleen. Spleen is otherwise unremarkable. Adrenals: Normal. No mass. Kidneys and ureters: Normal. No hydronephrosis. Stomach and bowel: Unremarkable. No obstruction. No mucosal thickening. Negative for colonic diverticulitis. Appendix: Appendix is normal. Intraperitoneal space: Unremarkable. No free air. No significant fluid collection. Vasculature: Moderate calcified atherosclerotic disease. No aortic aneurysm. Lymph nodes: Unremarkable. No enlarged lymph nodes. Bladder: Diffuse bladder wall thickening. Reproductive: Prostate is normal in size. Bones/joints: Moderate degenerative spine. No acute fracture. 5 mm anterolisthesis of L4-L5. Soft tissues: Sebaceous cyst in the subcutaneous tissue in the left gluteal region measuring 1.8 x 2.9 cm. Small left inguinal hernia containing fat. No evidence of incarceration. IMPRESSION: 1. No hydronephrosis or renal stone. 2. Diffuse bladder wall thickening. Hypertrophic changes versus cystitis. 3. Moderate stool in the colon. 4. Additional findings as described. Electronically signed by: Ruddy Alejo On 03/25/2020 23:45:57 PM
[2020-03-26 00:07] LABS: BASO % 0.2 % (0.0-1.0); EOS # 0.1 10^3/uL (0.0-0.5); EOS % 1.1 % (0.0-3.0); HEMATOCRIT 37.6 % (42.0-52.0); HEMOGLOBIN 12.5 g/dl (13.5-17.5); LYMPH # 1.7 10^3/uL (1.5-5.0); LYMPH % 19.3 % (24.0-44.0); MEAN CORPUSCULAR HEMOGLOBIN 29.3 pg (27.0-33.0); MEAN CORPUSCULAR HGB CONC 33.2 g/dl (32.0-36.5); MEAN CORPUSCULAR VOLUME 88.1 fl (80.0-96.0); NEUTROPHILS % 67.6 % (36.0-66.0); PLATELET COUNT, AUTOMATED 298 10^3/uL (150-450); RED BLOOD COUNT 4.27 10^6/uL (4.30-6.10); WHITE BLOOD COUNT 8.9 10^3/uL (4.0-10.0)
[2020-03-26 00:23] LABS: CALCIUM LEVEL 8.8 MG/DL (8.8-10.2); CREATININE FOR GFR 1.43 MG/DL (0.70-1.30); POTASSIUM SERUM 3.3 MEQ/L (3.5-5.1)
[2020-03-26 00:27] LABS: ALBUMIN 3.5 GM/DL (3.2-5.2); BILIRUBIN,DIRECT 0.2 MG/DL (0.0-0.2); BILIRUBIN,TOTAL 0.6 MG/DL (0.2-1.0); TOTAL PROTEIN 6.7 GM/DL (6.4-8.2)
[2020-03-26] MEDS ORDERED: MIRALAX *UNIT DOSE* 17GM PACKET PO STA (01:07)
[2020-03-26] MEDS ORDERED: DICY10CA13 PO (01:09)
[2020-03-26] MEDS ORDERED: MIRA3350 PO (01:09)
[2020-03-26] MEDS ORDERED: DICYCLOMINE 10 MG CAP PO ONE (01:15)
[2020-03-26] MEDS ORDERED: MAGNESIUM CITRATE 300 ML BTL PO ONE (01:15)
[2020-03-26 01:25] VITALS: BP 182/86
== END 2020-03-26 01:26 | disposition home or self-care (01) ==
LOC: M ED 23:02
DX: K59.00 Constipation, unspecified (principal); R79.89 Other specified abnormal findings of blood chemistry; K50.90 Crohn's disease, unspecified, without complications; F17.210 Nicotine dependence, cigarettes, uncomplicated
CPT/HCPCS: 74176; 80048; 80076; 81001; 83690; 85025; 96361; 96374; 96375; 99284; J1885; J2405

== ENCOUNTER 2020-07-16 18:17 | Emergency (ER) | payer MEDICARE ==
[~2020-07-16] VITALS: Ht 172.7 cm; Wt 69.1 kg
[~2020-07-16 18:17] MED LIST changes: +DICY10CA13 PO
[2020-07-16 19:08] LABS: BASO % 0.2 % (0.0-1.0); EOS % 0.1 % (0.0-3.0); HEMATOCRIT 40.6 % (42.0-52.0); HEMOGLOBIN 13.6 g/dl (13.5-17.5); LYMPH # 1.3 10^3/uL (1.5-5.0); LYMPH % 14.6 % (24.0-44.0); MEAN CORPUSCULAR HEMOGLOBIN 29.6 pg (27.0-33.0); MEAN CORPUSCULAR HGB CONC 33.5 g/dl (32.0-36.5); MEAN CORPUSCULAR VOLUME 88.5 fl (80.0-96.0); MONO # 0.7 10^3/uL (0.0-0.8); MONO % 8.2 % (0.0-5.0); NEUTROPHILS # 6.8 10^3/uL (1.5-8.5); NEUTROPHILS % 76.6 % (36.0-66.0); PLATELET COUNT, AUTOMATED 311 10^3/uL (150-450); RED BLOOD COUNT 4.59 10^6/uL (4.30-6.10); WHITE BLOOD COUNT 8.9 10^3/uL (4.0-10.0)
[2020-07-16 19:31] LABS: ALBUMIN 4.6 GM/DL (3.2-5.2); ALT/SGPT 24 U/L (12-78); BILIRUBIN,DIRECT 0.2 MG/DL (0.0-0.2); BILIRUBIN,TOTAL 0.6 MG/DL (0.2-1.0); BLOOD UREA NITROGEN 25 MG/DL (7-18); CALCIUM LEVEL 10.4 MG/DL (8.8-10.2); CARBON DIOXIDE LEVEL 26 MEQ/L (21-32); CHLORIDE LEVEL 97 MEQ/L (98-107); CREATININE FOR GFR 1.86 MG/DL (0.70-1.30); GLOMERULAR FILTRATION RATE 39.1 (>49); GLUCOSE, FASTING 118 MG/DL (70-100); LIPASE 81 U/L (73-393); POTASSIUM SERUM 4.7 MEQ/L (3.5-5.1); SODIUM LEVEL 133 MEQ/L (136-145); TOTAL PROTEIN 8.5 GM/DL (6.4-8.2)
[2020-07-16] MEDS ORDERED: NS 1,000 ML IV ONE (19:45)
[2020-07-16 20:32] LABS: ACETAMINOPHEN LEVEL < 2.0 UG/ML (10.0-30.0); CK-MB VALUE MASS 2.3 NG/ML (<3.6); CPK CREATINE PHOSPHOKINASE 232 U/L (39-308); ETHYL ALCOHOL (ETHANOL) < 0.003 % (0.000-0.010); MB/CK RELATIVE INDEX 0.99 (< OR =4); SALICYLATE LEVEL < 1.7 MG/DL (5.0-30.0); TROPONIN I < 0.02 NG/ML (< 0.10)
[2020-07-16] MEDS ORDERED: HALOPERIDOL 5MG/ML VIAL (J1630 PER 1) IV ONE (21:00)
--- NOTE | 2020-07-16 21:39 | REPVR ---
PROCEDURE INFORMATION: Exam: CT Abdomen And Pelvis Without Contrast Exam date and time: 07/16/2020 8:55 PM Age: 64 years old Clinical indication: Abdominal pain; Generalized; Additional info: Severe luq pain TECHNIQUE: Imaging protocol: Computed tomography of the abdomen and pelvis without contrast. Radiation optimization: All CT scans at this facility use at least one of these dose optimization techniques: automated exposure control; mA and/or kV adjustment per patient size (includes targeted exams where dose is matched to clinical indication); or iterative reconstruction. COMPARISON: CT ABD PELVIS W/O CONTRAST 03/25/2020 11:20 PM FINDINGS: Lungs: No suspicious mass or airspace process in the visualized lung bases. Liver: Noncontrast liver shows no obvious lesion. Gallbladder and bile ducts: Gallbladder is present and shows no evidence of gallstone. Prominent extrahepatic bile ducts and common bile duct although with normal tapering in the pancreatic head. Pancreas: Noncontrast pancreas shows no obvious mass or adjacent fluid. Spleen: Noncontrast spleen shows no obvious focal deformity. Adrenals: Adrenal glands are normal in appearance. Kidneys and ureters: Kidneys show no stone or hydronephrosis. Stomach and bowel: No evidence of small bowel obstruction. No evidence of acute diverticulitis. Large volume of stool is seen throughout the colon. Appendix: Appendix is not seen. No RLQ inflammation to suggest appendicitis. Intraperitoneal space: No pneumoperitoneum. Vasculature: Atherosclerotic change present in the aorta, without aneurysm. Lymph nodes: No enlarged lymph nodes. Bladder: Urinary bladder appears normal. Reproductive: Dystrophic prostate calcifications are noted. Bones/joints: Bony structures are normal except for lumbar spine degenerative disc changes. Soft tissues: Unremarkable. Other findings: Limited evaluation without enteric or IV contrast. IMPRESSION: 1. No acute surgical or inflammatory intra-abdominal or pelvic process. No specific explanation for left upper quadrant pain. 2. Prominent colonic stool suggesting possible constipation Electronically signed by: Chau Do On 07/16/2020 21:38:44 PM
[2020-07-16] MEDS ORDERED: MIRALAX *UNIT DOSE* 17GM PACKET PO STA (22:31)
[2020-07-17] MEDS ORDERED: ONDA4TAB6 PO (00:20)
[2020-07-17] MEDS ORDERED: MIRA3350 PO (00:20)
[2020-07-17] MEDS ORDERED: BACITRACIN OINTMENT 30GM TUBE TOP STA (00:59)
[2020-07-17] MEDS ORDERED: BACI500O21 TOP (01:00)
[2020-07-17 01:28] VITALS: BP 138/64
--- NOTE | 2020-07-20 10:00 | ECGEPIP ---
[facility] - ED Test Date: 2020-07-16 Pat Name: MOISES TRINIDAD Department: Room: - Gender: Male Anesthesiology Tech: SUSHMA : 1955 Requested By: SAHRA Davis PA-C Order Number: [id number] Reading MD: Pan Parsons Measurements Intervals [place] Rate: 78 P: -29 [place]: 116 QRS: 76 QRSD: 100 T: 60 QT: 388 QTc: 444 Interpretive Statements SINUS RHYTHM WITH SHORT OH INTERVAL MODERATE INTRAVENTRICULAR CONDUCTION DELAY MINIMAL VOLTAGE CRITERIA FOR LVH, CONSIDER NORMAL VARIANT NSTTW ABNORMALITIES SIMILAR TO 03/19/20 Electronically Signed on 07-20-2020 9:59:59 EDT by Pan Parsons
== END 2020-07-17 01:34 | disposition home or self-care (01) ==
LOC: M ED 18:17
DX: T21.13XA Burn of first degree of upper back, initial encounter (principal); T31.0 Burns involving less than 10% of body surface; K59.00 Constipation, unspecified; E86.0 Dehydration; F41.9 Anxiety disorder, unspecified; F32.9 Major depressive disorder, single episode, unspecified; F20.9 Schizophrenia, unspecified; J45.909 Unspecified asthma, uncomplicated; K50.90 Crohn's disease, unspecified, without complications; K82.9 Disease of gallbladder, unspecified; F14.10 Cocaine abuse, uncomplicated; F12.10 Cannabis abuse, uncomplicated
CPT/HCPCS: 36415; 74176; 80048; 80076; 81001; 82550; 82553; 83690; 84443; 84484; 85025; 93005; 93041; 94760; 96361; 96374; 99285; G0480; J1630

== ENCOUNTER → 2020-08-04 | Outpatient (REF) ==
[~2020-08-04] MED LIST changes: +BACI500O21 TOP
== END ==
LOC: M LAB 19:36